=== PATIENT | male | born 1970 | race Caucasian/White ===

== ENCOUNTER 2017-07-02 14:24 | Inpatient (IN) | payer OTHER ==
[2017-07-02] MEDS ORDERED: SODIUM CHLORIDE 0.9% 1000 ML INFUS.BAG IV ONE (14:47)
--- NOTE | 2017-07-02 14:54 | PDOC ---
History of Present Illness - General Stated Complaint: OVERDOSE Time Seen by Provider: 07/02/17 14:43 - History of Present Illness Initial Comments: 07/02/17 14:48 47M with pmh of PTSD, depression and substance abuse brought to the ED by EMS from [facility] [place] where he was dropped by a friend. EMS found the patient unconscious and unarousable, gave him Narcan and check his FS: 122. Patient now conscious in the ED, admits to alcohol consumption and heroin. Obeys command. Claims he wants to , tried to kill himself. Pupils dilated but responsive. No sign of trauma. 07/02/17 16:54 07/02/17 16:55 Past History - Past Medical History Allergies/Adverse Reactions: Allergies Allergy/AdvReac Type Severity Reaction Status Date / Time No Known Allergies Allergy Verified 08/09/15 13:27 Home Medications: Ambulatory Orders Hydroxyzine Pamoate [Vistaril -] 25 mg PO TID 08/09/15 Trazodone HCl [Desyrel -] 100 mg PO HS 08/09/15 Bupropion HCl [Wellbutrin Xl -] 150 mg PO DAILY #30 tab.sr.24h 08/12/15 Asthma: No Cancer: No Cardiac Disorders: No CVA: No COPD: No CHF: No Dementia: No Diabetes: No GI Disorders: No Disorders: No HTN: No Hypercholesterolemia: No Kidney Stones: No Liver Disease: No Suicide Attempt (Hx): No Seizures: No Thyroid Disease: No - Surgical History Abdominal Surgery: No Appendectomy: No Cardiac Surgery: No Cholecystectomy: No Lung Surgery: No Neurologic Surgery: No Orthopedic Surgery: Yes (left foot surgery 1981) - Reproductive History Testicular Surgery: No - Psycho/Social/Smoking Cessation Hx Anxiety: Yes Suicidal Ideation: No Smoking History: Current some day smoker Have you smoked in the past 12 months: Yes Number of Cigarettes Smoked Daily: 2 Hx Alcohol Use: Yes Drug/Substance Use Hx: No Substance Use Type: Alcohol Hx Substance Use Treatment: Yes (detox, rehab) ED Treatment Course - LABORATORY CBC & Chemistry Diagram: 07/02/17 15:00 07/02/17 15:00 Medical Decision Making - Medical Decision Making 07/02/17 16:55 47M with pmh of PTSD, depression and substance abuse brought to the ED by EMS EtOH: 485 08/19/17 16:59 *DC/Admit/Observation/Transfer Diagnosis at time of Disposition: Alcoholic intoxication - Discharge Dispostion Admit: Yes - Referrals Referrals: Jaiden Gordon MD [Primary Care Provider] -
[2017-07-02 15:17] LABS: BASOPHIL 2.3 % (0-2.0); EOSINOPHIL 0.7 % (0-4.5); MCH 33.1 pg (25.7-33.7); MEAN CELL VOLUME 97.1 fl (80-96); MEAN PLT VOLUME 8.1 fl (7.5-11.1); NEUTROPHILS 44.6 % (42.8-82.8); PLATELET COUNT 256 K/MM3 (134-434); RDW 17.1 % (11.9-15.9); WHITE BLOOD COUNT 4.2 K/mm3 (4.0-10.0)
[2017-07-02 15:33] VITALS: BMI 22.5
[2017-07-02 15:41] LABS: ALBUMIN 3.9 g/dl (3.4-5.0); ALK PHOS 114 U/L (45-117); ANION GAP 12 (8-16); BILIRUBIN,TOTAL 0.3 mg/dL (0.2-1.0); CALCIUM 8.3 mg/dL (8.5-10.1); CO2 27 mmol/L (21-32); CREATININE 0.9 mg/dL (0.7-1.3); GLUCOSE,RANDOM 107 mg/dL (74-106); SGOT/AST 71 U/L (15-37); SGPT/ALT 48 U/L (12-78); TOT PROT 7.2 g/dl (6.4-8.2)
--- NOTE | 2017-07-02 15:41 | PDOC ---
Attending Attestation - Resident Resident Name: GurjitAl - ED Attending Attestation I have performed the following: I have examined & evaluated the patient, The case was reviewed & discussed with the resident, I agree w/resident's findings & plan, Exceptions are as noted - HPI HPI: 07/02/17 15:34 47 yo M h/o MDD, ptsd, substance and etoh abuse ( heroin) here from [facility]. pt was dropped off by brother or friend, for detox. on arrival to [facility]. pt was found to be stuporous, drowsy, and minimally responsive. called EMS on EMS arrival. pt was given narcan, responded. no n/v no other complaints. pt reports etoh use ( vodka) heroin and also states yes to benzo's use. states he is feeling suicidal and is tearful at times during history. denies trauma or other coningestant. - Physicial Exam PE: 07/02/17 15:36 drowsy but awake, eyes open, lungs clear heart RRR no mrg. abd soft NT ND. ext wwp skin warm and dry. psych tearful, pos SI, . hematoma, right calf. - Medical Decision Making 07/02/17 15:41 plan pt with psychiatric history, overdose. questionable intentional vs. accidental. plan cbc lytes tox scrren. r/o coingestant. monitoring. when clinically sober will require psychiatric evaluation for suicidality. due to mulitple ingestants, and concern for intentional overdose will require admission for observation., placed on 1: 1. belongings secured. Heart Score/ECG Review #1 General ECG Interpretation: Sinus Rhythm, Normal Rate (78), Normal Intervals, No acute ischemic changes
[2017-07-02 15:51] LABS: SALICYLATE < 4.0 mg/dl (0.0-30.0)
[2017-07-02 16:07] LABS: URINE APPEARANCE CLEAR; URINE BILIRUBIN NEGATIVE (NEGATIVE); URINE BLOOD NEGATIVE (NEGATIVE); URINE COLOR LTYELLOW; URINE GLUCOSE (UA) NEGATIVE (NEGATIVE); URINE KETONE NEGATIVE (NEGATIVE); URINE LEUK ESTERASE NEGATIVE (NEGATIVE); URINE NITRITE NEGATIVE (NEGATIVE); URINE PROTEIN NEGATIVE (NEGATIVE); URINE UROBILINOGEN NEGATIVE mg/dL (0.2-1.0)
[2017-07-02 16:35] LABS: URINE MARIJUANA THC NEGATIVE ng/ml (CUTOFF=50)
--- NOTE | 2017-07-02 17:24 | PN ---
Teaching Attending Note Name of Resident: Lise Danielson ATTENDING PHYSICIAN STATEMENT I saw and evaluated the patient. I reviewed the resident's note and discussed the case with the resident. I agree with the resident's findings and plan as documented. SUBJECTIVE: He is asleep but arouses to verbal and physical stimuli OBJECTIVE: Vitals noted He is protecting his airway Sitter reports that he stood up and urinated several minutes ago ASSESSMENT AND PLAN: Acute, severe alcohol intoxication Toxic metabolic encephalopathy Suicidal ideation and reported attempt Admit to telemetry 1:1 sitter Psych consult Will calculate osmolar gap to screen for toxic alcohol ingestion Will repeat EtOH level now to ensure that it is declining, given the extreme height and the danger of airway compromise should it increase IVF resuscitation followed by banana bag Thiamine, Folate, MVI daily I suspect heavy use given his level of arousal with such a high alcohol level Will follow closely for alcohol withdrawal given
--- NOTE | 2017-07-02 17:42 | HP ---
CHIEF COMPLAINT: intoxication PCP: none HISTORY OF PRESENT ILLNESS: 47 yr old man with current and hx of ETOH abuse bibems from [facility] due to severe intoxication. He started drinking daily since last Tuesday (1 liter of vodka, Jimenez goose mixed with vitamin water) when his left him to live in [place]. He says he spent the days watching TV and drinking without food intake. He says that wants to hurt himself with alcohol, began crying and went back to sleep. Patient is arousable to verbal and tactile stimuli but does not maintain alertness. ER course was notable for: (1)ETOH level 485 (2) urine tox negative (3) chest xray - negative for acute lung pathology Recent Travel: denies CHART REVIEWED FOR FURTHER INFORMATION PAST MEDICAL HISTORY: ETOH abuse PAST SURGICAL HISTORY: "left foot surgery 1981" Social History: Smoking: current everyday smoker Alcohol: current everyday drinker Drugs: as per ED note: pt said he took heroin but urine tox is negative Family History: "Diabetes: Mother (depression), CA: Father (throat cancer, alcohol), Other: Mother, Brother (mental illness)" Allergies No Known Allergies Allergy (Verified 08/09/15 13:27) HOME MEDICATIONS: Home Medications - [facility] DOES NOT HAVE A FILE FOR THIS PATIENT, UNABLE TO VERIFY HOME MEDS Medication Instructions Recorded Hydroxyzine Pamoate [Vistaril -] 25 mg PO TID 08/09/15 Trazodone HCl [Desyrel -] 100 mg PO HS 08/09/15 Bupropion HCl [Wellbutrin Xl -] 150 mg PO DAILY #30 tab.sr.24h 08/12/15 REVIEW OF SYSTEMS CONSTITUTIONAL: Present: loss of appetite Absent: fever, chills, diaphoresis, generalized weakness, malaise, loss of appetite CARDIOVASCULAR: Absent: chest pain RESPIRATORY: Absent: cough, shortness of breath GASTROINTESTINAL: Absent: abdominal pain, abdominal distension, nausea, vomiting, diarrhea GENITOURINARY: Absent: dysuria, hematuria PSYCHIATRIC: Present: suicidal ideation, depressed Absent: homicidal ideation PHYSICAL EXAMINATION Vital Signs - 24 hr 07/02/17 07/02/17 14:25 17:21 Temperature 98.2 F Pulse Rate 76 Pulse Rate [ 86 Apical] Respiratory 16 21 Rate Blood Pressure 119/90 Blood Pressure 110/74 [Right Arm] O2 Sat by Pulse 99 96 Oximetry (%) GENERAL: lethargic, arousable but does not maintain alertness, oriented to person, in no acute distress. HEAD: Normal with no signs of trauma. EYES: Pupils dilated, minimally reactive to light, extraocular movements intact , sclera anicteric, conjunctiva clear. EARS, NOSE, THROAT: Tympanic membranes normal, nares patent, oropharynx clear without exudates/erythema. Moist mucous membranes. NECK: Normal range of motion, supple without lymphadenopathy, JVD, or masses. LUNGS: Breath sounds equal, clear to auscultation bilaterally. No wheezes, and no crackles. No accessory muscle use. HEART: Regular rate and rhythm, normal S1 and S2 without murmur, rub or gallop. ABDOMEN: Soft, nontender, not distended, normoactive bowel sounds, no guarding, no rebound, no masses. No hepatomegaly or splenomegaly. MUSCULOSKELETAL: Normal range of motion at all joints. No bony deformities or tenderness. No CVA tenderness. UPPER EXTREMITIES: 2+ radial pulses, warm, well-perfused. No cyanosis. No clubbing. No peripheral edema. LOWER EXTREMITIES: 2+ dp pulses, warm, well-perfused. No calf tenderness. No peripheral edema. right medial lower leg with 2x2cm bruise NEUROLOGICAL: Normal speech. follows commands, lethargic. PSYCHIATRIC: Cooperative. [facility] Laboratory Results - last 24 hr 07/02/17 07/02/17 07/02/17 15:00 15:00 15:00 WBC 4.2 RBC 3.96 L Hgb 13.1 Hct 38.4 MCV 97.1 H MCH 33.1 MCHC 34.0 RDW 17.1 H D Plt Count 256 D MPV 8.1 Neutrophils % 44.6 D Lymphocytes % 44.6 H D Monocytes % 7.8 Eosinophils % 0.7 Basophils % 2.3 H Sodium 145 Potassium 3.8 Chloride 106 Carbon Dioxide 27 Anion Gap 12 BUN 14 D Creatinine 0.9 Creat Clearance w eGFR > 60 Random Glucose 107 H Calcium 8.3 L Total Bilirubin 0.3 D AST 71 H D ALT 48 D Alkaline Phosphatase 114 Total Protein 7.2 Albumin 3.9 D Urine Color Urine Appearance Urine pH Urine Protein Urine Glucose (UA) Urine Ketones Urine Blood Urine Nitrite Urine Bilirubin Urine Urobilinogen Ur Leukocyte Esterase Salicylates < 4.0 Opiates Screen Methadone Screen Acetaminophen < 2.000 L Barbiturate Screen Phencyclidine Screen Ur Amphetamines Screen MDMA (Ecstasy) Screen Benzodiazepines Screen Cocaine Screen U Marijuana (THC) Screen Alcohol, Quantitative 07/02/17 07/02/17 07/02/17 15:00 15:41 15:41 WBC RBC Hgb Hct MCV MCH MCHC RDW Plt Count MPV Neutrophils % Lymphocytes % Monocytes % Eosinophils % Basophils % Sodium Potassium Chloride Carbon Dioxide Anion Gap BUN Creatinine Creat Clearance w eGFR Random Glucose Calcium Total Bilirubin AST ALT Alkaline Phosphatase Total Protein Albumin Urine Color Ltyellow Urine Appearance Clear Urine pH 5.0 Urine Protein Negative Urine Glucose (UA) Negative Urine Ketones Negative Urine Blood Negative Urine Nitrite Negative Urine Bilirubin Negative Urine Urobilinogen Negative Ur Leukocyte Esterase Negative Salicylates Opiates Screen Negative Methadone Screen Negative Acetaminophen Barbiturate Screen Negative Phencyclidine Screen Negative Ur Amphetamines Screen Negative MDMA (Ecstasy) Screen Negative Benzodiazepines Screen Negative Cocaine Screen Negative U Marijuana (THC) Screen Negative Alcohol, Quantitative 485.4 H* ASSESSMENT/PLAN: 47 yr old man with ETOH abuse BIBEMS from [facility] due to toxic metabolic encephalopathy secondary to severe alcohol intoxication. #Toxic metabolic encephalopathy secondary to severe ETOH intoxication - repeat serum alcohol level to ensure decline - serum osm gap of 25, pt denies taking any other agents with the vodka, U/A without ketonos or microscopy to indicate other types of alcohol - place in telemetry for continous cardiac monitoring, pt will require detox with librium #Severe ETOH intoxication - pt will require detox, Dr. Gordon consulted for possible detox transfer once pt medically stable - thiamine, folate, multivitamin po daily - banana bag now, IVF #Suicidal ideation - Dr. Cabrera(Psych consult) - 1:1 sitter - continous monitoring - pt said he is taking risperdal, unable to verify, he cannot name a physician or pharmacy. will defer psych medications at this time, QTc currently wnl. #DVT: Heparin 5000unit BID #GI: not currently indicated #Activity: as tolerated once detox'd F/E/N - NS @100cc/hr - wnl - regular diet Visit type - Emergency Visit Emergency Visit: Yes ED Registration Date: 07/02/17 Care time: The patient presented to the Emergency Department on the above date and was hospitalized for further evaluation of their emergent condition. - New Patient This patient is new to me today: Yes Date on this admission: 07/02/17 - Critical Care Critical Care patient: No
[2017-07-02] MEDS ORDERED: FOLIC ACID INJECTION - 1 MG, THIAMINE HCL 100 MG, MULTIVIT INJECTION ADULT 10 ML in SOD... IVPB ONE (18:57)
[2017-07-03] MEDS ORDERED: SODIUM CHLORIDE 1,000 ML IV SCH (08:15)
[2017-07-03] MEDS: chlordiazePOXIDE HCL 25 MG CAPSULE PO SCH ×4 (08:25→22:56)
[2017-07-03] MEDS ORDERED: LORazepam 2 MG/ML SDV VIAL ONE ×2 (08:50→14:50)
[2017-07-03] MEDS: THIAMINE HCL 100 MG TABLET (FP) PO SCH (09:24)
[2017-07-03] MEDS: FOLIC ACID 1 MG TABLET (FP) PO SCH (09:24)
--- NOTE | 2017-07-03 09:47 | PN ---
Physical Exam: SUBJECTIVE: Patient seen and examined. He reports drinking 3 pints of Vodka per day. He has been admitted for alcohol withdrawal but denies any ICU admissions or seizures. His last drink was shortly before he presented to the ED yesterday. He uses recreational crack occasionally (inhaled) and used recreational heroin ( intranasal) for the first time Tuesday. He adamantly denies any suicidal ideation or attempt and does not recall communicating that to the ED. He states that he drank 5 pintos of Vodka the day of his presentation to the ED. He denies all other ingestions. He reports feeling some restlessness and tremor now. OBJECTIVE: Vital Signs Period Temp Pulse Resp BP Sys/Lorenzo Pulse Ox Last 24 Hr 97.2 F-98.5 F 64-95 18-18 110-113/60-81 96-99 GEN: Awake, alert CVS: RRR PULM: CTAB ABD: soft, NT/ND, NABS EXTREM: warm ,well perfused NEURO: tremulous Laboratory Results - last 24 hr 07/02/17 07/02/17 17:50 21:00 Serum Osmolality Cancelled Alcohol, Quantitative 371.5 H* Active Medications Generic Name Dose Route Start Last Admin Trade Name Freq PRN Reason Stop Dose Admin Chlordiazepoxide HCl 50 mg 07/03/17 11:00 07/03/17 08:25 Librium - PO 50 mg [id number] ISH Administration Folic Acid 1 mg 07/03/17 10:00 07/03/17 09:24 Folic Acid - PO 1 mg DAILY ISH Administration Heparin Sodium (Porcine) 5,000 unit 07/03/17 10:00 Heparin - SQ BID ISH Sodium Chloride 1,000 mls @ 100 mls/hr 07/03/17 08:15 07/03/17 09:29 Normal Saline - IV 100 mls/hr ASDIR ISH Administration Lorazepam 2 mg 07/03/17 08:47 07/03/17 08:26 Ativan Injection - IVPUSH 07/03/17 08:48 2 mg ONCE ONE Administration Multivitamins/Minerals 1 each 07/03/17 10:00 Theragran-M PO DAILY ISH Thiamine HCl 100 mg 07/03/17 10:00 07/03/17 09:24 Vitamin B1 - PO 100 mg DAILY ISH Administration ASSESSMENT/PLAN: The patient is a 47 year old male with a significant past medical history of alcohol abuse who is now hospital day #1 with acute, severe alcohol intoxication and reported suicidal ideation and attempt. He is now in alcohol withdrawal. #POLYSUBSTANCE ABUSE Acute, severe alcohol intoxication Alcohol withdrawal Toxic metabolic encephalopathy Suicidal ideation and reported attempt which he now denies Continue telemetry monitoring given alcohol withdrawal Librium 50mg Q6H Ativan 2mg IV Q2hrs prn agitation Detox consult Continue 1:1 sitter Psych consult pending Continue Thiamine, Folate, MVI daily #FEN He is now euvolemic Change IVF to D51/2NS at 125ml/hr Todays labs pending Of note, he had a small osmolar gap yesterday, but no anion gap I felt that a toxic alcohol ingestion was unlikely With the height of his alcohol intoxication, he was also protected from their toxic metabolities and so we elected not to give Fomepizole Will look at todays labs including anion gap and osmolar gap and reassess But he does deny any ingestions other than store bought vodka #PROPHYLAXIS Lovenox Eating He may need GI prophylaxis if his alcohol withdrawal worsens Visit type - Emergency Visit Emergency Visit: Yes ED Registration Date: 07/02/17 Care time: The patient presented to the Emergency Department on the above date and was hospitalized for further evaluation of their emergent condition. - New Patient This patient is new to me today: No - Critical Care Critical Care patient: No
[2017-07-03] MEDS ORDERED: DEXTROSE 5%-0.45% SALINE 1,000 ML IV SCH (10:00)
[2017-07-03] MEDS ORDERED: HEPARIN NA (PORCINE) 5,000 UNITS/ML 1ML VIAL SQ SCH (10:00)
[2017-07-03] MEDS: MULTIVITAMINS THER W-MINERALS COMBO TABLET (FP) PO SCH (11:25)
[2017-07-03] MEDS: ENOXAPARIN NA (PORCINE) 40 MG/0.4 ML DISP.SYRIN SQ SCH (11:29)
[2017-07-03 11:50] LABS: ALBUMIN 3.4 g/dl (3.4-5.0); ANION GAP 9 (8-16); CALCIUM 8.1 mg/dL (8.5-10.1); CO2 27 mmol/L (21-32); CREATININE 0.8 mg/dL (0.7-1.3); GLUCOSE,RANDOM 150 mg/dL (74-106); MAGNESIUM 1.5 mg/dL (1.8-2.4); PHOSPHOROUS 1.8 mg/dL (2.5-4.9); SGOT/AST 53 U/L (15-37); SGPT/ALT 41 U/L (12-78)
[2017-07-03 11:52] LABS: ALK PHOS 90 U/L (45-117); BILIRUBIN,TOTAL 0.5 mg/dL (0.2-1.0); TOT PROT 6.4 g/dl (6.4-8.2)
--- NOTE | 2017-07-03 12:53 | EKG ---
Test Reason : Blood Pressure : / mmHG Vent. Rate : 078 BPM Atrial Rate : 078 BPM P-R Int : 166 ms QRS Dur : 104 ms QT Int : 410 ms P-R-T Axes : 064 -30 -06 degrees QTc Int : 467 ms NORMAL SINUS RHYTHM LEFT AXIS DEVIATION ABNORMAL ECG NO PREVIOUS ECGS AVAILABLE Confirmed by MARTY KEANE MD ([id number]) on 07/03/2017 12:52:31 PM Referred By: Confirmed By:MARTY KEANE MD
[2017-07-03] MEDS ORDERED: MAGNESIUM SULF 50% (8.12 MEQ/2 ML-1 GM VIAL) IVPB ONE (14:15)
[2017-07-03] MEDS: MAGNESIUM OXIDE 400 MG TABLET (FP) PO SCH (22:56)
[2017-07-04 06:37] VITALS: TEMP 98
[2017-07-04] MEDS: chlordiazePOXIDE HCL 25 MG CAPSULE PO SCH ×2 (06:37→10:53)
[2017-07-04 07:57] LABS: BASOPHIL 0.9 % (0-2.0); EOSINOPHIL 1.3 % (0-4.5); MCH 33.4 pg (25.7-33.7); MCHC 34.2 g/dl (32.0-35.9); MEAN CELL VOLUME 97.4 fl (80-96); MEAN PLT VOLUME 8.6 fl (7.5-11.1); PLATELET COUNT 237 K/MM3 (134-434); RDW 16.3 % (11.9-15.9); WHITE BLOOD COUNT 5.9 K/mm3 (4.0-10.0)
[2017-07-04 08:56] LABS: ALBUMIN 3.4 g/dl (3.4-5.0); ALK PHOS 98 U/L (45-117); ANION GAP 8 (8-16); BILIRUBIN,TOTAL 0.9 mg/dL (0.2-1.0); CALCIUM 8.8 mg/dL (8.5-10.1); CO2 29 mmol/L (21-32); CREATININE 0.8 mg/dL (0.7-1.3); GLUCOSE,RANDOM 82 mg/dL (74-106); PHOSPHOROUS 2.6 mg/dL (2.5-4.9); SGOT/AST 48 U/L (15-37); SGPT/ALT 41 U/L (12-78); TOT PROT 6.7 g/dl (6.4-8.2)
[2017-07-04] MEDS: THIAMINE HCL 100 MG TABLET (FP) PO SCH (10:52)
[2017-07-04] MEDS: FOLIC ACID 1 MG TABLET (FP) PO SCH (10:52)
[2017-07-04] MEDS: MULTIVITAMINS THER W-MINERALS COMBO TABLET (FP) PO SCH (10:52)
[2017-07-04] MEDS: MAGNESIUM OXIDE 400 MG TABLET (FP) PO SCH (10:52)
[2017-07-04] MEDS: ENOXAPARIN NA (PORCINE) 40 MG/0.4 ML DISP.SYRIN SQ SCH (10:53)
[2017-07-04 11:08] VITALS: BP 130/82; PULSE 72
--- NOTE | 2017-07-04 12:52 | PN ---
Teaching Attending Note Name of Resident: Lise Danielson ATTENDING PHYSICIAN STATEMENT I saw and evaluated the patient. I reviewed the resident's note and discussed the case with the resident. I agree with the resident's findings and plan as documented. SUBJECTIVE: Patient has no complaints. He is concerned about missing luggage. OBJECTIVE: Vital Signs Period Temp Pulse Resp BP Sys/Lorenzo Pulse Ox Last 24 Hr 98 F-98.7 F 59-78 18-20 124-139/69-84 96-98 HEART: S1S, RRR LUNGS: Clear ABDOMEN: Soft, non-tender, non-distended, normal BS EXTREMITIES: No edema ASSESSMENT AND PLAN: This is a 47 year old man with a history of alcohol abuse who was sent to the ER from [facility] for severe alcohol intoxication. 1. Alcohol withdrawal, uncomplicated - Continue Librium detox - Awaiting detox consult 2. Continuous alcohol dependence - Continue folic acid, thiamine, multivitamin 3. s/p severe alcohol intoxication
--- NOTE | 2017-07-04 16:00 | DS ---
Physical Exam: SUBJECTIVE: Patient seen and examined at bedside today. Pt stated that he no longer wanted to be in the hospital because he was missing his luggage that had valuable items in it. He stated that he did not want to continue his treatment and find his luggage. Pt was told about the risks of leaving, such as relapsing and self-harm. However, he left AMA. OBJECTIVE: Vital Signs Period Temp Pulse Resp BP Sys/Lorenzo Pulse Ox Last 24 Hr 98 F-98.7 F 59-78 18-20 124-139/69-84 96-98 PHYSICAL EXAM GENERAL: The patient is awake, guarded, in no acute distress. HEAD: Normal with no signs of trauma. EYES: PERRL, extraocular movements intact, sclera anicteric, conjunctiva clear. NECK: Trachea midline, full range of motion, supple. LUNGS: Breath sounds equal, clear to auscultation bilaterally, no wheezes, no crackles, no accessory muscle use. HEART: Regular rate and rhythm, S1, S2 without murmur, rub or gallop. ABDOMEN: Soft, nontender, nondistended, normoactive bowel sounds, no guarding, no rebound, no hepatosplenomegaly, no masses. EXTREMITIES: 2+ posterior tibial pulses, warm, well-perfused, no edema. NEUROLOGICAL: Cranial nerves II through XII grossly intact. Tremor at rest and upon movement in upper extremities. PSYCH: Depressed, guarded VITALS TREND/LABS Vitals Trend 07/02/17 07/02/17 07/02/17 14:25 17:21 18:00 Temperature 98.2 F Pulse Rate 76 Respiratory 16 21 Rate Blood Pressure 119/90 O2 Sat by Pulse 99 96 99 Oximetry (%) 07/02/17 07/02/17 07/03/17 22:00 23:18 02:00 Temperature 97.2 F L 97.2 F L 98.0 F Pulse Rate 64 64 66 Respiratory 18 18 18 Rate Blood Pressure 113/81 113/81 110/60 O2 Sat by Pulse Oximetry (%) 07/03/17 07/03/17 07/03/17 05:47 08:19 08:25 Temperature 98.5 F 98.5 F Pulse Rate 72 95 H Respiratory 18 18 18 Rate Blood Pressure 112/74 110/69 O2 Sat by Pulse 96 98 Oximetry (%) 07/03/17 07/03/17 07/03/17 15:59 17:00 21:00 Temperature 98.2 F 98.2 F Pulse Rate 78 73 Respiratory 18 20 Rate Blood Pressure 128/74 134/84 O2 Sat by Pulse 98 Oximetry (%) 07/03/17 07/03/17 07/04/17 21:42 22:00 02:00 Temperature 98 F 98.7 F Pulse Rate 70 60 70 Respiratory 20 19 Rate Blood Pressure 124/80 139/69 O2 Sat by Pulse 96 Oximetry (%) 07/04/17 07/04/17 07/04/17 06:36 09:00 10:00 Temperature 98 F 98 F Pulse Rate 59 L 72 Respiratory 20 18 Rate Blood Pressure 133/84 130/82 O2 Sat by Pulse 98 98 Oximetry (%) Laboratory Tests 07/02/17 07/02/17 07/02/17 15:00 15:00 15:00 WBC 4.2 RBC 3.96 L Hgb 13.1 Hct 38.4 MCV 97.1 H MCH 33.1 MCHC 34.0 RDW 17.1 H D Basophils % 2.3 H Sodium 145 Potassium 3.8 Carbon Dioxide 27 Anion Gap 12 BUN 14 D Creatinine 0.9 Random Glucose 107 H Serum Osmolality 432 H Calcium 8.3 L AST 71 H D ALT 48 D 07/03/17 07/03/17 07/04/17 10:40 10:40 05:48 WBC 5.9 D RBC 4.25 Hgb 14.2 Hct MCV 97.4 H MCH 33.4 MCHC 34.2 RDW 16.3 H Basophils % Sodium 140 Potassium 3.7 Carbon Dioxide 27 Anion Gap 9 BUN 11 D Creatinine 0.8 Random Glucose 150 H D Serum Osmolality 321 H D Calcium 8.1 L AST 53 H D ALT 41 07/04/17 05:48 WBC RBC Hgb Hct MCV MCH MCHC RDW Basophils % Sodium 137 Potassium 3.7 Carbon Dioxide 29 Anion Gap 8 BUN 12 Creatinine 0.8 Random Glucose 82 D Serum Osmolality Calcium 8.8 AST 48 H ALT 41 IMAGING -07/02/17 EKG: normal sinus rhythm, L axis deviation -07/02/17 CXR: since 07/2015, slightly weaker inspiration with more prominent mediastinum/heart but no sign of acute process. HOSPITAL COURSE: Date of Admission:07/02/17 Date of Discharge: 07/04/17 Admit diagnosis: alcohol intoxication Pre-admission course 47 yr old man with current and hx of ETOH abuse bibems from [facility] due to severe intoxication. He started drinking daily since last Tuesday (1 liter of vodka, Jimenez goose mixed with vitamin water) when his left him to live in [place]. He says he spent the days watching TV and drinking without food intake. He says that wants to hurt himself with alcohol, began crying and went back to sleep. Patient is arousable to verbal and tactile stimuli but does not maintain alertness. ER course was notable for: (1)ETOH level 485 (2) urine tox negative (3) chest xray - negative for acute lung pathology Hospital course Pt was managed for alcohol intoxication upon admission. He was placed on tele monitoring without any acute cardiac events, and started on Librium protocol at 50mg Q6H (received 5 doses), as well as ativan 2mg IV q2h for PRN agitation. Detox consult was also in place, and pt was on thiamine, folate, and a multivitamin daily. Psych was also consulted, however pt left AMA before these consults were completed. Pt stated that he wanted to leave the facility to retrieve a bag with valuables that he left at another site. He stated that he no longer wanted to continue his medical treatment, despite the risks that were presented to him upon leaving. Pt still was tremulous in upper extremities upon leaving. Minutes to complete discharge: 32 Discharge Summary Reason For Visit: ALCOHOL INTOXICATION Condition: Guarded - Instructions Diet, Activity, Other Instructions: You were recently in the hospital for alcohol intoxication and withdrawal. We recommend that you look into joining an AA meeting. They are a good way to find support from people with similar experiences. A delinquency prevention social worker from our facility can provide you with additional resources. You expressed interest in doing so during your hospitalization. Please follow-up with your primary care physician in a week. If you develop shortness of breath, chest pain, or any new symptoms, please go to the hospital. We hope you feel better soon. Referrals: Jaiden Gordon MD [Primary Care Provider] - Disposition: AGAINST MEDICAL ADVICE - Home Medications Comprehensive Discharge Medication List: Ambulatory Orders Hydroxyzine Pamoate [Vistaril -] 75 mg PO DAILY 08/09/15 Trazodone HCl [Desyrel -] 100 mg PO HS 08/09/15 This patient is new to me today: Yes Date on this admission: 07/04/17 Emergency Visit: No Critical Care patient: No - Discharge Referral Referred to [facility] No
== END 2017-07-04 13:18 | disposition left against medical advice (07) | DRG 770 ==
LOC: JER 14:24 → JERBED 17:31 → J4W 22:08
PROVIDERS: ADMIT Internal Medicine; ATTEND Internal Medicine
PROC: HZ2ZZZZ Detoxification Services for Substance Abuse Treatment (ICD-10-PCS; principal; 2017-07-03)
DX: F10.230 Alcohol dependence with withdrawal, uncomplicated (principal); F10.229 Alcohol dependence with intoxication, unspecified; F43.10 Post-traumatic stress disorder, unspecified; G92 Toxic encephalopathy; R45.851 Suicidal ideations; Y90.8 Blood alcohol level of 240 mg/100 ml or more; F17.210 Nicotine dependence, cigarettes, uncomplicated; F19.10 Other psychoactive substance abuse, uncomplicated
CPT/HCPCS: 36415; 71010-TC; 80053; 80307; 81003; 83735; 83930; 84100; 85025; 93005; 93010; 99285-25

== ENCOUNTER 2017-07-30 18:50 | Emergency (ER) | payer OTHER ==
[2017-07-30 19:27] VITALS: TEMP 97.8; BMI 27.3
--- NOTE | 2017-07-30 19:31 | PDOC ---
History of Present Illness - General History Source: Patient - History of Present Illness Initial Comments: 07/31/17 07:00 47-year-old male tai PRASAD. Patient is arousable and denies any headache, dizziness, lightheadedness, visual disturbance, neck pain, back pain, chest pain , shortness of breath, flank pains, abdominal discomfort, urinary symptoms, Tha numbness or tingling sensation. Patient states he had a pint of vodka earlier today and smoked some crack last evening. Patient reports a parked care for alcohol detoxification and was sent to the emergency department. Patient has no complaints. Timing/Duration: 4-6 hours <Ab Huynh - Last Filed: 07/31/17 04:08> - History of Present Illness Initial Comments: 07/31/17 05:50 Pt seen by Midlevel Provider under my direct supervision. Documentation has been prepared under my direction and personally reviewed by me in its entirety. I attest that this document accurately reflects all work, treatment, procedures and medical decision-making performed. I agree with plan as outlined by Midlevel Provider. (Alejandro Wei I) <Alejandro Wei I - Last Filed: 07/31/17 05:55> - General Chief Complaint: Substance Abuse Stated Complaint: SUBSTANCE ABUSE Time Seen by Provider: 07/30/17 18:55 Past History - Past Medical History Asthma: No Cancer: No Cardiac Disorders: No CVA: No COPD: No CHF: No Dementia: No Diabetes: No GI Disorders: No Disorders: No HTN: No Hypercholesterolemia: No Kidney Stones: No Liver Disease: No Psychiatric Problems: Yes Suicide Attempt (Hx): No Seizures: No Thyroid Disease: No - Surgical History Abdominal Surgery: No Appendectomy: No Cardiac Surgery: No Cholecystectomy: No Lung Surgery: No Neurologic Surgery: No Orthopedic Surgery: Yes (left foot surgery 1981) - Reproductive History Testicular Surgery: No - Psycho/Social/Smoking Cessation Hx Anxiety: Yes Suicidal Ideation: No Smoking History: Unknown if ever smoked Have you smoked in the past 12 months: Yes Number of Cigarettes Smoked Daily: 2 Information on smoking cessation initiated: No Hx Alcohol Use: Yes Drug/Substance Use Hx: Yes (XANAX PER [employer]) Substance Use Type: Alcohol, Heroin Hx Substance Use Treatment: Yes (detox, rehab) <Ab Huynh - Last Filed: 07/31/17 04:08> <JaydenlucienLalucien Adams - Last Filed: 07/31/17 05:55> - Past Medical History Allergies/Adverse Reactions: Allergies Allergy/AdvReac Type Severity Reaction Status Date / Time No Known Allergies Allergy Verified 08/09/15 13:27 Home Medications: Ambulatory Orders Hydroxyzine Pamoate [Vistaril -] 75 mg PO DAILY 08/09/15 Trazodone HCl [Desyrel -] 100 mg PO HS 08/09/15 Unobtainable 07/30/17 Review of Systems - Review of Systems Able to Perform ROS?: Yes Comments:: 07/31/17 04:06 CONSTITUTIONAL: Absent: fever, chills, diaphoresis, generalized weakness, malaise, loss of appetite HEENT: Absent: rhinorrhea, nasal congestion, throat pain, throat swelling, difficulty swallowing, mouth swelling, ear pain, eye pain, visual Changes CARDIOVASCULAR: Absent: chest pain, loss of consciousness, palpitations, irregular heart rate, peripheral edema RESPIRATORY: Absent: cough, shortness of breath, dyspnea with exertion, orthopnea, wheezing, stridor, hemoptysis GASTROINTESTINAL: Absent: abdominal pain, abdominal distension, nausea, vomiting, diarrhea, constipation, melena, hematochezia GENITOURINARY: Absent: dysuria, frequency, urgency, hesitancy, hematuria, flank pain, genital pain MUSCULOSKELETAL: Absent: myalgia, arthralgia, joint swelling SKIN: Absent: rash, itching, pallor HEMATOLOGIC/IMMUNOLOGIC: Absent: easy bleeding, easy bruising, lymphadenopathy, frequent infections ENDOCRINE: Absent: unexplained weight gain, unexplained weight loss, heat intolerance, cold intolerance NEUROLOGIC: Absent: headache, focal weakness or paresthesias, dizziness, unsteady gait, seizure, mental status changes, bladder or bowel incontinence PSYCHIATRIC: Absent: anxiety, depression, suicidal or homicidal ideation, hallucinations. Is the patient limited Hungarian proficient: No <AminaAb - Last Filed: 07/31/17 04:08> *Physical Exam - Vital Signs Last Vital Signs Temp Pulse Resp BP Pulse Ox 97.8 F 71 20 120/78 94 L 07/30/17 19:14 07/30/17 19:14 07/30/17 19:14 07/30/17 19:14 07/30/17 19:14 - Physical Exam Comments: 07/31/17 04:06 GENERAL: Well developed, well nourished. Awake and alert. No acute distress. HEENT: Normocephalic, atraumatic. PERRLA, EOMI. No conjunctival pallor. Sclera are non- icteric. Moist mucous membranes. Oropharynx is clear. NECK: Supple. Full ROM. No JVD. Carotid pulses 2+ and symmetric, without bruits. No thyromegaly. No lymphadenopathy. CARDIOVASCULAR: Regular rate and rhythm. No murmurs, rubs, or gallops. Distal pulses are 2+ and symmetric. PULMONARY: No evidence of respiratory distress. Lungs clear to auscultation bilaterally. No wheezing, rales or rhonchi. ABDOMINAL: Soft. Non-tender. Non-distended. No rebound or guarding. No organomegaly. Normoactive bowel sounds. MUSCULOSKELETAL Normal range of motion at all joints. No bony deformities or tenderness. No CVA tenderness. EXTREMITIES: No cyanosis. No clubbing. No edema. No calf tenderness. SKIN: Warm and dry. Normal capillary refill. No rashes. No jaundice. NEUROLOGICAL: Alert, awake, appropriate. Cranial nerves 2-12 intact. No deficits to light touch and temperature in face, upper extremities and lower extremities. No motor deficits in the in face, upper extremities and lower extremities. Normoreflexic in the upper and lower extremities. Normal speech. Toes are down- going bilaterally. Gait is normal without ataxia. PSYCHIATRIC: Cooperative. Good eye contact. Appropriate mood and affect. <Ab Huynh - Last Filed: 07/31/17 04:08> - Vital Signs Last Vital Signs Temp Pulse Resp BP Pulse Ox 97.8 F 71 20 120/78 94 L 07/30/17 19:14 07/30/17 19:14 07/30/17 19:14 07/30/17 19:14 07/30/17 19:14 <Alejandro Wei I - Last Filed: 07/31/17 05:55> ED Treatment Course - LABORATORY CBC & Chemistry Diagram: 07/30/17 19:40 07/30/17 19:40 - RADIOLOGY Radiograph Interpretation: 07/31/17 00:29 CT head w/o contrast; WNL <Ab Huynh - Last Filed: 07/31/17 04:08> - LABORATORY CBC & Chemistry Diagram: 07/30/17 19:40 07/30/17 19:40 - ADDITIONAL ORDERS Additional order review: Laboratory Results 07/30/17 07/30/17 07/30/17 19:45 19:40 19:40 Sodium Potassium Chloride Carbon Dioxide Anion Gap BUN Creatinine Creat Clearance w eGFR Random Glucose Calcium Total Bilirubin AST ALT Alkaline Phosphatase Total Protein Albumin Salicylates < 4.0 Opiates Screen Negative Methadone Screen Negative Acetaminophen < 2.000 L Barbiturate Screen Negative Phencyclidine Screen Negative Ur Amphetamines Screen Negative MDMA (Ecstasy) Screen Negative Benzodiazepines Screen Negative Cocaine Screen Positive U Marijuana (THC) Screen Negative Alcohol, Quantitative 512.3 H* 07/30/17 19:40 Sodium 142 Potassium 3.6 Chloride 105 Carbon Dioxide 26 Anion Gap 11 BUN 12 Creatinine 0.9 Creat Clearance w eGFR > 60 Random Glucose 125 H D Calcium 8.6 Total Bilirubin 0.3 D AST 75 H D ALT 45 Alkaline Phosphatase 90 Total Protein 7.2 Albumin 3.7 Salicylates Opiates Screen Methadone Screen Acetaminophen Barbiturate Screen Phencyclidine Screen Ur Amphetamines Screen MDMA (Ecstasy) Screen Benzodiazepines Screen Cocaine Screen U Marijuana (THC) Screen Alcohol, Quantitative 07/30/17 19:40 RBC 4.28 MCV 97.2 H MCHC 34.4 RDW 15.5 MPV 7.9 Neutrophils % No Result Required. Lymphocytes % No Result Required. - Medications Given in the ED: ED Medications Discontinued Medications Generic Name Dose Route Start Last Admin Trade Name Alfredoq PRN Reason Stop Dose Admin Folic Acid 1 mg/ Thiamine HCl 1,000 mls @ 125 mls/hr 07/30/17 21:26 07/30/17 23 :02 100 mg/ Multivitamins/Minerals IVPB 07/31/17 05:25 125 mls/hr 10 ml/ Sodium Chloride ONCE ONE Administration <Alejandro Wei I - Last Filed: 07/31/17 05:55> *DC/Admit/Observation/Transfer - Discharge Dispostion Admit: No <Ab Huynh - Last Filed: 07/31/17 04:08> <Alejandro Wei I - Last Filed: 07/31/17 05:55> Diagnosis at time of Disposition: Alcohol intoxication Qualifiers: Complication of substance-induced condition: uncomplicated Qualified Code(s): F10.920 - Alcohol use, unspecified with intoxication, uncomplicated - Discharge Dispostion Disposition: HOME Condition at time of disposition: Stable - Referrals Referrals: Radha Tadeo [Primary Care Provider] - - Patient Instructions Printed Discharge Instructions: DI for Alcohol Abuse Additional Instructions: You are being sent to [facility] for Alcohol Detoxification Return to the ER for any concerns Progress Note - Progress Note Progress Note: 0405hrs: Spoke to Dr. Jordan from [facility] <Ab Huynh - Last Filed: 07/31/17 04:08>
[2017-07-30 20:01] LABS: MCH 33.5 pg (25.7-33.7); MCHC 34.4 g/dl (32.0-35.9); MEAN CELL VOLUME 97.2 fl (80-96); MEAN PLT VOLUME 7.9 fl (7.5-11.1); PLATELET COUNT 242 K/MM3 (134-434); RDW 15.5 % (11.9-15.9); WHITE BLOOD COUNT 4.9 K/mm3 (4.0-10.0)
[2017-07-30 20:02] LABS: URINE MARIJUANA THC NEGATIVE ng/ml (CUTOFF=50)
[2017-07-30 20:36] LABS: ALBUMIN 3.7 g/dl (3.4-5.0); ANION GAP 11 (8-16); CALCIUM 8.6 mg/dL (8.5-10.1); CO2 26 mmol/L (21-32); CREATININE 0.9 mg/dL (0.7-1.3); GLUCOSE,RANDOM 125 mg/dL (74-106); SGOT/AST 75 U/L (15-37); SGPT/ALT 45 U/L (12-78)
[2017-07-30 20:37] LABS: PLATELET ESTIMATE ADEQUATE (NORMAL); TOTAL CELLS COUNTED 100
[2017-07-30 20:38] LABS: ALK PHOS 90 U/L (45-117); BASOPHIL (MANUAL) 3 % (0-2.0); BILIRUBIN,TOTAL 0.3 mg/dL (0.2-1.0); REACTIVE LYMPHOCYTES 1 % (0-80); TOT PROT 7.2 g/dl (6.4-8.2)
[2017-07-30 20:46] LABS: SALICYLATE < 4.0 mg/dl (0.0-30.0)
[2017-07-30] MEDS ORDERED: FOLIC ACID INJECTION - 1 MG, THIAMINE HCL 100 MG, MULTIVIT INJECTION ADULT 10 ML in SOD... IVPB ONE (21:26)
[2017-07-31 07:19] VITALS: BP 116/85; PULSE 77
--- NOTE | 2017-08-01 16:36 | EKG ---
Test Reason : Blood Pressure : / mmHG Vent. Rate : 073 BPM Atrial Rate : 073 BPM P-R Int : 178 ms QRS Dur : 108 ms QT Int : 394 ms P-R-T Axes : 081 -26 008 degrees QTc Int : 434 ms NORMAL SINUS RHYTHM NORMAL ECG WHEN COMPARED WITH ECG OF 02-JUL-2017 15:02, NO SIGNIFICANT CHANGE WAS FOUND Confirmed by JUDY RAPHAEL MD ([id number]) on 08/01/2017 4:36:15 PM Referred By: Confirmed By:JUDY RAPHAEL MD
== END 2017-07-31 07:21 | disposition home or self-care (01) ==
LOC: JER 18:50
PROC: 3E033GC Introduction of Other Therapeutic Substance into Peripheral Vein, Percutaneous Approach (ICD-10-PCS; principal; 2017-07-30)
DX: F10.129 Alcohol abuse with intoxication, unspecified (principal); F14.10 Cocaine abuse, uncomplicated; Y90.8 Blood alcohol level of 240 mg/100 ml or more
CPT/HCPCS: 36415; 70450-TC; 80053; 80307; 85025; 93005; 93010; 96365; 96366; 99284-25

== ENCOUNTER 2017-07-31 08:42 | Inpatient (IN) | payer OTHER ==
[2017-07-31 11:11] VITALS: BMI 25.9
--- NOTE | 2017-07-31 12:53 | HP ---
CIWA Score - CIWA Score Nausea/Vomitin Muscle Tremors: 5 Anxiety: 4-Mod. Anxious/Guarded Agitation: 4-Moderately Restless Paroxysmal Sweats: 3 Orientation: 2-Disoriented Date<2 days Tacttile Disturbances: 0-None Auditory Disturbances: 0-None Visual Disturbances: 0-None Headache: 0-None Present CIWA-Ar Total Score: 21 Admission ROS BHS - HPI Chief Complaint: Withdrawal sx. Allergies/Adverse Reactions: Allergies Allergy/AdvReac Type Severity Reaction Status Date / Time No Known Allergies Allergy Verified 07/31/17 10:56 History of Present Illness: 47 y/o man with a long hx. of alcoholism is admitted for detox. Pt. has been in previous detox, denies significant sobriety. Pt. was here last night but before he could be admitted, he was found on the floor. No one witnessed the fall, he was send to ED to be cleared. Head CT Scan is negative. Exam Limitations: No Limitations - Ebola screening Have you traveled outside of the country in the last 21 days: No Have you had contact with anyone from an Ebola affected area: No Have you been sick,other than usual withdrawal symptoms: No Do you have a fever: No - Review of Systems Constitutional: Diaphoresis EENT: reports: No Symptoms Reported Respiratory: reports: No Symptoms reported Cardiac: reports: No Symptoms Reported GI: reports: Nausea, Abdominal cramping : reports: No Symptoms Reported Musculoskeletal: reports: No Symptoms Reported Integumentary: reports: Sweating Neuro: reports: Headache, Tremors Endocrine: reports: No Symptoms Reported Hematology: reports: No Symptoms Reported Psychiatric: reports: No Sypmtoms Reported Other Systems: Reviewed and Negative Patient History - Patient Medical History Hx Anemia: No Hx Asthma: No Hx Chronic Obstructive Pulmonary Disease (COPD): No Hx Cancer: No Hx Cardiac Disorders: No Hx Congestive Heart Failure: No Hx Hypertension: No Hx Hypercholesterolemia: No Hx Pacemaker: No HX Cerebrovascular Accident: No Hx Seizures: No Hx Dementia: No Hx Diabetes: No Hx Gastrointestinal Disorders: No Hx Liver Disease: No Hx Genitourinary Disorders: No Hx Sexually Transmitted Disorders: No Hx Renal Disease (ESRD): No Hx Thyroid Disease: No Hx Human Immunodeficiency Virus (HIV): No Hx Hepatitis C: No Hx Depression: Yes Hx Suicide Attempt: No Hx Bipolar Disorder: Yes Hx Schizophrenia: No - Patient Surgical History Past Surgical History: Yes Hx Neurologic Surgery: No Hx Cataract Extraction: No Hx Cardiac Surgery: No Hx Lung Surgery: No Hx Breast Surgery: No Hx Breast Biopsy: No Hx Abdominal Surgery: No Hx Appendectomy: No Hx Cholecystectomy: No Hx Genitourinary Surgery: No Hx Section: No Hx Orthopedic Surgery: Yes (right foot surgery 1981) Anesthesia Reaction: No - PPD History Previous Implant?: Yes Documented Results: Positive w/o proof Implanted On Prior [facility] Admission?: Yes PPD to be Administered?: No - Smoking Cessation Smoking history: Current every day smoker Have you smoked in the past 12 months: Yes Aproximately how many cigarettes per day: 4 Hx Chewing Tobacco Use: No Initiated information on smoking cessation: Yes 'Breaking Loose' booklet given: 07/31/17 - Substance & Tx. History Hx Alcohol Use: Yes Hx Substance Use: Yes Substance Use Type: Alcohol, Cocaine Hx Substance Use Treatment: Yes (detox 06/2017 at [facility]) - Substances Abused Alcohol Route: Oral Frequency: Daily Amount used: vodka(1 gallon) Age of first use: 29 Date of Last Use: 07/30/17 Crack Route: Smoking Frequency: Daily Amount used: $60 Age of first use: 41 Date of Last Use: 07/29/17 Family Disease History - Family Disease History Family Disease History: Diabetes: Mother (depression), CA: Father (throat cancer , alcohol), Other: Mother, Brother (mental illness) Admission Physical Exam S - Vital Signs Vital Signs: Vital Signs - 24 hr 07/31/17 11:09 Temperature 97.8 F Pulse Rate 97 H Respiratory 20 Rate Blood Pressure 146/86 - Physical General Appearance: Yes: Alcohol on Breath, Tremorous, Sweating, Anxious HEENTM: Yes: Within Normal Limits Respiratory: Yes: Chest Non-Tender, Lungs Clear, Normal Breath Sounds Neck: Yes: Supple Breast: Yes: Breast Exam Deferred Cardiology: Yes: Regular Rhythm, Regular Rate, S1, S2 Abdominal: Yes: Normal Bowel Sounds, Non Tender, Soft Genitourinary: Yes: Within Normal Limits Back: Yes: Within Normal Limits Musculoskeletal: Yes: Within Normal Limits Extremities: Yes: Tremors Neurological: Yes: Fully Oriented, Alert Integumentary: Yes: Diaphoresis Lymphatic: Yes: Within Normal Limits - Diagnostic (1) PPD positive Current Visit: No Status: Chronic (2) Alcohol dependence with uncomplicated withdrawal Current Visit: Yes Status: Acute Cleared for Admission [facility] - Detox or Rehab [facility] Level of Care: Medically Managed Detox Regimen/Protocol: Librium [facility] Breath Alcohol Content Breath Alcohol Content: 0.300 Urine Drug Screen - Results Drug Screen Negative: No Urine Drug Screen Results: KEILA-Cocaine, BZO-Benzodiazepines
[2017-07-31] MEDS ORDERED: chlordiazePOXIDE HCL 25 MG CAPSULE PO ONE (12:59)
[2017-07-31] MEDS ORDERED: MAG HYDROX/AL HYDROX/SIMETH 30 ML UNIT-DOSE CUP PO PRN (12:59)
[2017-07-31] MEDS ORDERED: MAGNESIUM HYDROX 2400MG/30ML ORAL SUSPENSION 30 ML CUP PO PRN (12:59)
[2017-07-31] MEDS ORDERED: MENTHOL/PHENOL 1 EACH UD MM PRN (12:59)
[2017-07-31] MEDS ORDERED: NICOTINE POLACRILEX 2 MG GUM BC PRN (12:59)
[2017-07-31] MEDS ORDERED: hydrOXYzine PAMOATE 50 MG CAPSULE (FP) PO PRN (12:59)
[2017-07-31] MEDS ORDERED: diphenhydrAMINE HCL 50 MG CAPSULE PO PRN (12:59)
[2017-07-31] MEDS ORDERED: MAGNESIUM CITRATE 300 ML BOTTLE PO PRN (12:59)
[2017-07-31] MEDS ORDERED: guaiFENesin/D-METHORPHAN HB 10 ML UNIT-DOSE CUPS PO PRN (12:59)
[2017-07-31] MEDS ORDERED: LOPERAMIDE HCL 2 MG CAPSULE PO PRN (12:59)
[2017-07-31] MEDS ORDERED: ACETAMINOPHEN 325 MG TABLET (FP) PO PRN (12:59)
[2017-07-31] MEDS ORDERED: P-EPHED 60MG/TRIPROLIDI 2.5MG TABLET PO PRN (12:59)
[2017-07-31] MEDS: NICOTINE 7 MG/24 HOURS TOPICAL PATCH TD SCH ×2 (14:09→14:15)
[2017-07-31] MEDS: chlordiazePOXIDE HCL 25 MG CAPSULE PO SCH ×2 (17:14→22:33)
[2017-07-31 19:18] LABS: URINE APPEARANCE CLEAR; URINE BILIRUBIN NEGATIVE (NEGATIVE); URINE BLOOD NEGATIVE (NEGATIVE); URINE COLOR YELLOW; URINE GLUCOSE (UA) NEGATIVE (NEGATIVE); URINE KETONE 1+ (NEGATIVE); URINE LEUK ESTERASE NEGATIVE (NEGATIVE); URINE NITRITE NEGATIVE (NEGATIVE); URINE UROBILINOGEN NEGATIVE mg/dL (0.2-1.0)
[2017-07-31 19:22] LABS: URINE PROTEIN 1+ (NEGATIVE)
[2017-07-31 19:25] LABS: URINE MUCUS RARE; URINE RBC 1 /hpf (0-3); URINE WBC 1 /hpf (3-5)
[2017-07-31] MEDS: THIAMINE HCL 100 MG TABLET (FP) PO SCH (22:31)
[2017-08-01] MEDS: chlordiazePOXIDE HCL 25 MG CAPSULE PO SCH ×4 (05:17→22:33)
[2017-08-01] MEDS: chlordiazePOXIDE HCL 25 MG CAPSULE PO PRN ×2 (08:41→12:34)
[2017-08-01] MEDS ORDERED: chlordiazePOXIDE HCL 25 MG CAPSULE PO ONE (09:22)
[2017-08-01 09:46] LABS: MCH 32.6 pg (25.7-33.7); MCHC 33.3 g/dl (32.0-35.9); MEAN CELL VOLUME 98.1 fl (80-96); MEAN PLT VOLUME 7.9 fl (7.5-11.1); PLATELET COUNT 216 K/MM3 (134-434); RDW 15.6 % (11.9-15.9); WHITE BLOOD COUNT 4.9 K/mm3 (4.0-10.0)
[2017-08-01 09:57] LABS: ALBUMIN 3.6 g/dl (3.4-5.0); ANION GAP 7 (8-16); CALCIUM 9.3 mg/dL (8.5-10.1); CO2 31 mmol/L (21-32); CREATININE 0.9 mg/dL (0.7-1.3); GLUCOSE,RANDOM 84 mg/dL (74-106); SGOT/AST 84 U/L (15-37); SGPT/ALT 50 U/L (12-78)
[2017-08-01 09:58] LABS: ALK PHOS 105 U/L (45-117); BILIRUBIN,TOTAL 0.8 mg/dL (0.2-1.0); TOT PROT 6.8 g/dl (6.4-8.2)
[2017-08-01] MEDS: NICOTINE 7 MG/24 HOURS TOPICAL PATCH TD SCH (10:38)
[2017-08-01] MEDS: PRENATAL VITAMINS W/ FOLIC ACID TABLET (FP) PO SCH (10:38)
--- NOTE | 2017-08-01 10:55 | PN ---
S CIWA - CIWA Score Nausea/Vomitin Muscle Tremors: 3 Anxiety: 2 Agitation: 2 Paroxysmal Sweats: 1-Minimal Palms Moist Orientation: 0-Oriented Tacttile Disturbances: 1-Very Mild Itch/Numbness Auditory Disturbances: 1-Very Mild Visual Disturbances: 1-Very Mild Sensitivity Headache: 2-Mild CIWA-Ar Total Score: 16 S Progress Note (SOAP) Subjective: alert,irritable,anxious,interrupted sleep,tremor Objective: 08/01/17 10:55 Vital Signs Temperature 98.2 F 08/01/17 10:16 Pulse Rate 90 08/01/17 10:16 Respiratory Rate 18 08/01/17 10:16 Blood Pressure 144/98 08/01/17 10:16 O2 Sat by Pulse Oximetry (%) 08/01/17 10:55 08/01/17 10:56 ekg nsr,low voltage of qrs Laboratory Last Values WBC 4.9 K/mm3 (4.0-10.0) 08/01/17 07:00 RBC 4.38 M/mm3 (4.00-5.60) 08/01/17 07:00 Hgb 14.3 GM/dL (11.7-16.9) 08/01/17 07:00 Hct 43.0 % (35.4-49) 08/01/17 07:00 MCV 98.1 fl (80-96) H 08/01/17 07:00 MCH 32.6 pg (25.7-33.7) 08/01/17 07:00 MCHC 33.3 g/dl (32.0-35.9) 08/01/17 07:00 RDW 15.6 % (11.9-15.9) 08/01/17 07:00 Plt Count 216 K/MM3 (134-434) 08/01/17 07:00 MPV 7.9 fl (7.5-11.1) 08/01/17 07:00 Sodium 137 mmol/L (136-145) 08/01/17 07:00 Potassium 3.7 mmol/L (3.5-5.1) 08/01/17 07:00 Chloride 99 mmol/L (98-107) 08/01/17 07:00 Carbon Dioxide 31 mmol/L (21-32) 08/01/17 07:00 Anion Gap 7 (8-16) L 08/01/17 07:00 BUN 12 mg/dL (7-18) 08/01/17 07:00 Creatinine 0.9 mg/dL (0.7-1.3) 08/01/17 07:00 Creat Clearance w eGFR > 60 (>60) 08/01/17 07:00 Random Glucose 84 mg/dL (74-106) D 08/01/17 07:00 Calcium 9.3 mg/dL (8.5-10.1) 08/01/17 07:00 Total Bilirubin 0.8 mg/dL (0.2-1.0) D 08/01/17 07:00 AST 84 U/L (15-37) H 08/01/17 07:00 ALT 50 U/L (12-78) 08/01/17 07:00 Alkaline Phosphatase 105 U/L (45-117) 08/01/17 07:00 Total Protein 6.8 g/dl (6.4-8.2) 08/01/17 07:00 Albumin 3.6 g/dl (3.4-5.0) 08/01/17 07:00 Urine Color Yellow 07/31/17 18:00 Urine Appearance Clear 07/31/17 18:00 Urine pH 5.0 (5.0-8.0) 07/31/17 18:00 Ur Specific [place] 1.025 (1.005-1.025) 07/31/17 18:00 Urine Protein 1+ (NEGATIVE) H 07/31/17 18:00 Urine Glucose (UA) Negative (NEGATIVE) 07/31/17 18:00 Urine Ketones 1+ (NEGATIVE) H 07/31/17 18:00 Urine Blood Negative (NEGATIVE) 07/31/17 18:00 Urine Nitrite Negative (NEGATIVE) 07/31/17 18:00 Urine Bilirubin Negative (NEGATIVE) 07/31/17 18:00 Urine Urobilinogen Negative mg/dL (0.2-1.0) 07/31/17 18:00 Urine RBC 1 /hpf (0-3) 07/31/17 18:00 Urine WBC 1 /hpf (3-5) 07/31/17 18:00 Urine Mucus Rare 07/31/17 18:00 Assessment: 08/01/17 10:57 withdrawal symptom Plan: continue detox
--- NOTE | 2017-08-01 11:21 | CONSULT ---
[facility] Psychiatric Consult - Data Date of interview: 08/01/17 Admission source: [facility] Identifying data: This is 47 years old man with a long history of alcoholism, is admitted for detoxification with Alcohol, Cocaine, Opioids and Nicotine. 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 Efren sandoval8es history of psychiatric hospital;izations. - Ebola screening Substance Abuse History: - Smoking Cessation. Smoking history: Current every day smoker. Have you smoked in the past 12 months: Yes. Aproximately how many cigarettes per day: 4. Hx Chewing Tobacco Use: No. Initiated information on smoking cessation: Yes. 'Breaking Loose' booklet given: 07/31/17. - Substance & Tx. History. Hx Alcohol Use: Yes. Hx Substance Use: Yes. Substance Use Type : Alcohol, Cocaine. Hx Substance Use Treatment: Yes (detox 06/2017 at [facility]). - Substances Abused. Alcohol. Route: Oral. Frequency: Daily. Amount used: vodka(1 gallon). Age of first use: 29. Date of Last Use: 07/30/17. Crack. Route: Smoking. Frequency: Daily. Amount used: $60. Age of first use: 41. Date of Last Use: 07/29/17 Medical History: Weight loss history Psychiatric History: Patoient reprots no pqast psychiatric hospityalization history, reports insom,chaz, reports taking prior to admission: Vistaril 50mg po qhs with good rsponse Physical/Sexual Abuse/Trauma History: Denies Additional Comment: Vistaril 50mg po qhs Mental Status Exam - Mental Status Exam Alert and Oriented to: Person Cognitive Function: Fair Patient Appearance: Unkempt Mood: Anxious Affect: Mood Congruent Patient Behavior: Talkative Speech Pattern: Appropriate Voice Loudness: Mildly Loud Thought Process: Goal Oriented Thought Disorder: Being Controlled Hallucinations: Denies Suicidal Ideation: Denies Homicidal Ideation: Denies Insight/Judgement: Fair Sleep: Difficulty falling asleep Appetite: Weight loss Muscle strength/Tone: Normal Gait/Station: Normal Additional Comments: Vistaril 50mg po qhs Psychiatric Findings - Problem List ([place] 1, 2,3) (1) Alcohol dependence with uncomplicated withdrawal Current Visit: Yes Status: Acute (2) Alcohol intoxication Current Visit: No Status: Acute Qualifiers: Complication of substance-induced condition: uncomplicated Qualified Code(s): F10.920 - Alcohol use, unspecified with intoxication, uncomplicated (3) MDD (major depressive disorder), recurrent episode, moderate Current Visit: No Status: Acute (4) Alcohol dependence Current Visit: No Status: Chronic (5) PTSD (post-traumatic stress disorder) Current Visit: No Status: Chronic (6) Opioid dependence Current Visit: Yes Status: Acute (7) Cocaine dependence Current Visit: Yes Status: Acute (8) Nicotine dependence Current Visit: Yes Status: Acute (9) Drug-induced mood disorder Current Visit: Yes Status: Acute - Initial Treatment Plan Initial Treatment Plan: Vistaril 50mg po qhs
[2017-08-01] MEDS: IBUPROFEN 400 MG TABLET (FP) PO PRN (12:23)
--- NOTE | 2017-08-01 17:01 | EKG ---
Test Reason : Blood Pressure : / mmHG Vent. Rate : 095 BPM Atrial Rate : 095 BPM P-R Int : 174 ms QRS Dur : 112 ms QT Int : 352 ms P-R-T Axes : 072 -20 020 degrees QTc Int : 442 ms NORMAL SINUS RHYTHM LOW VOLTAGE QRS BORDERLINE ECG WHEN COMPARED WITH ECG OF 30-JUL-2017 19:48, NO SIGNIFICANT CHANGE WAS FOUND Confirmed by JUDY RAPHAEL MD ([id number]) on 08/01/2017 5:00:53 PM Referred By: Confirmed By:JUDY RAPHAEL MD
[2017-08-01] MEDS: THIAMINE HCL 100 MG TABLET (FP) PO SCH (22:32)
[2017-08-02] MEDS: chlordiazePOXIDE HCL 25 MG CAPSULE PO SCH ×2 (05:24→10:33)
[2017-08-02] MEDS: PRENATAL VITAMINS W/ FOLIC ACID TABLET (FP) PO SCH (10:33)
[2017-08-02] MEDS: NICOTINE 7 MG/24 HOURS TOPICAL PATCH TD SCH (10:33)
--- NOTE | 2017-08-02 10:45 | PN ---
S CIWA - CIWA Score Nausea/Vomitin Muscle Tremors: 3 Anxiety: 3 Agitation: 2 Paroxysmal Sweats: 1-Minimal Palms Moist Orientation: 0-Oriented Tacttile Disturbances: 1-Very Mild Itch/Numbness Auditory Disturbances: 1-Very Mild Visual Disturbances: 1-Very Mild Sensitivity Headache: 2-Mild CIWA-Ar Total Score: 17 BHS Progress Note (SOAP) Subjective: alert,irritable,anxious,interrupted sleep,tremor Objective: 08/02/17 10:45 Vital Signs Temperature 98.1 F 08/02/17 09:55 Pulse Rate 110 H 08/02/17 09:55 Respiratory Rate 16 08/02/17 09:55 Blood Pressure 130/85 08/02/17 09:55 O2 Sat by Pulse Oximetry (%) Laboratory Last Values WBC 4.9 K/mm3 (4.0-10.0) 08/01/17 07:00 RBC 4.38 M/mm3 (4.00-5.60) 08/01/17 07:00 Hgb 14.3 GM/dL (11.7-16.9) 08/01/17 07:00 Hct 43.0 % (35.4-49) 08/01/17 07:00 MCV 98.1 fl (80-96) H 08/01/17 07:00 MCH 32.6 pg (25.7-33.7) 08/01/17 07:00 MCHC 33.3 g/dl (32.0-35.9) 08/01/17 07:00 RDW 15.6 % (11.9-15.9) 08/01/17 07:00 Plt Count 216 K/MM3 (134-434) 08/01/17 07:00 MPV 7.9 fl (7.5-11.1) 08/01/17 07:00 Sodium 137 mmol/L (136-145) 08/01/17 07:00 Potassium 3.7 mmol/L (3.5-5.1) 08/01/17 07:00 Chloride 99 mmol/L (98-107) 08/01/17 07:00 Carbon Dioxide 31 mmol/L (21-32) 08/01/17 07:00 Anion Gap 7 (8-16) L 08/01/17 07:00 BUN 12 mg/dL (7-18) 08/01/17 07:00 Creatinine 0.9 mg/dL (0.7-1.3) 08/01/17 07:00 Creat Clearance w eGFR > 60 (>60) 08/01/17 07:00 Random Glucose 84 mg/dL (74-106) D 08/01/17 07:00 Calcium 9.3 mg/dL (8.5-10.1) 08/01/17 07:00 Total Bilirubin 0.8 mg/dL (0.2-1.0) D 08/01/17 07:00 AST 84 U/L (15-37) H 08/01/17 07:00 ALT 50 U/L (12-78) 08/01/17 07:00 Alkaline Phosphatase 105 U/L (45-117) 08/01/17 07:00 Total Protein 6.8 g/dl (6.4-8.2) 08/01/17 07:00 Albumin 3.6 g/dl (3.4-5.0) 08/01/17 07:00 Urine Color Yellow 07/31/17 18:00 Urine Appearance Clear 07/31/17 18:00 Urine pH 5.0 (5.0-8.0) 07/31/17 18:00 Ur Specific [place] 1.025 (1.005-1.025) 07/31/17 18:00 Urine Protein 1+ (NEGATIVE) H 07/31/17 18:00 Urine Glucose (UA) Negative (NEGATIVE) 07/31/17 18:00 Urine Ketones 1+ (NEGATIVE) H 07/31/17 18:00 Urine Blood Negative (NEGATIVE) 07/31/17 18:00 Urine Nitrite Negative (NEGATIVE) 07/31/17 18:00 Urine Bilirubin Negative (NEGATIVE) 07/31/17 18:00 Urine Urobilinogen Negative mg/dL (0.2-1.0) 07/31/17 18:00 Urine RBC 1 /hpf (0-3) 07/31/17 18:00 Urine WBC 1 /hpf (3-5) 07/31/17 18:00 Urine Mucus Rare 07/31/17 18:00 RPR Titer Nonreactive (NONREACTIVE) 08/01/17 07:00 Assessment: 08/02/17 10:45 withdrawal symptom Plan: continue detox
[2017-08-02] MEDS: chlordiazePOXIDE 5 MG CAPSULE PO SCH ×2 (17:52→22:28)
[2017-08-02] MEDS: THIAMINE HCL 100 MG TABLET (FP) PO SCH (22:28)
[2017-08-02] MEDS: IBUPROFEN 400 MG TABLET (FP) PO PRN (22:32)
[2017-08-02] MEDS: hydrOXYzine PAMOATE 50 MG CAPSULE (FP) PO PRN (22:34)
[2017-08-03] MEDS: chlordiazePOXIDE 5 MG CAPSULE PO SCH ×2 (05:43→10:39)
[2017-08-03] MEDS: NICOTINE 7 MG/24 HOURS TOPICAL PATCH TD SCH (10:39)
[2017-08-03] MEDS: PRENATAL VITAMINS W/ FOLIC ACID TABLET (FP) PO SCH (10:39)
--- NOTE | 2017-08-03 11:44 | PN ---
S Progress Note (SOAP) Subjective: alert,irritable,anxious,interrupted sleep Objective: 08/03/17 11:43 Vital Signs Temperature 97.9 F 08/03/17 09:58 Pulse Rate 108 H 08/03/17 09:58 Respiratory Rate 18 08/03/17 09:58 Blood Pressure 123/68 08/03/17 09:58 O2 Sat by Pulse Oximetry (%) Assessment: 08/03/17 11:43 withdrawal symptom Plan: continue detox,discharge in am
[2017-08-03] MEDS: chlordiazePOXIDE HCL 10 MG CAPSULE PO SCH ×2 (18:03→22:32)
[2017-08-03] MEDS: THIAMINE HCL 100 MG TABLET (FP) PO SCH (22:32)
[2017-08-03] MEDS: hydrOXYzine PAMOATE 50 MG CAPSULE (FP) PO PRN (22:34)
[2017-08-04] MEDS: chlordiazePOXIDE HCL 10 MG CAPSULE PO SCH ×2 (06:21→12:08)
--- NOTE | 2017-08-04 08:39 | DS ---
[facility] Detox Discharge Summary Admission Date: 07/31/17 Discharge Date: 08/04/17 - History Present History: Alcohol Dependence Additional Comments: follow up with after care program as arrangement - Physical Exam Results Vital Signs: Vital Signs Temperature 97.6 F 08/04/17 06:25 Pulse Rate 58 L 08/04/17 06:25 Respiratory Rate 16 08/04/17 06:25 Blood Pressure 100/50 08/04/17 06:25 O2 Sat by Pulse Oximetry (%) Pertinent Admission Physical Exam Findings: withdrawal symptom - Treatment Hospital Course: Detox Protocol Followed, Detoxed Safely, Responded well, Discharged Condition Good Patient has Accepted a Rehab Referral to: declined - Medication Discharge Medications: Ambulatory Orders Hydroxyzine Pamoate [Vistaril -] 50 mg PO DAILY 08/09/15 Diphenhydramine [Benadryl Capsule -] 50 mg PO HSMR1 PRN #30 cap 08/01/17 - Diagnosis (1) Alcohol dependence with uncomplicated withdrawal Current Visit: Yes Status: Acute (2) Nicotine dependence Current Visit: Yes Status: Acute - AMA Did Patient Leave Against Medical Advice: No
[2017-08-04 09:46] VITALS: BP 123/76; PULSE 100; TEMP 97
[2017-08-04] MEDS: PRENATAL VITAMINS W/ FOLIC ACID TABLET (FP) PO SCH (10:48)
[2017-08-04] MEDS: NICOTINE 7 MG/24 HOURS TOPICAL PATCH TD SCH (10:48)
== END 2017-08-04 12:55 | disposition home or self-care (01) | DRG 773 ==
LOC: YASAS 08:42 → Y6N 11:46
PROVIDERS: ADMIT Internal Medicine; ATTEND Internal Medicine
PROC: HZ2ZZZZ Detoxification Services for Substance Abuse Treatment (ICD-10-PCS; principal; 2017-07-31)
PROC: HZ2ZZZZ Detoxification Services for Substance Abuse Treatment (ICD-10-PCS; 2017-07-31)
DX: F11.20 Opioid dependence, uncomplicated (principal); F10.230 Alcohol dependence with withdrawal, uncomplicated; F14.20 Cocaine dependence, uncomplicated; F17.210 Nicotine dependence, cigarettes, uncomplicated; F33.1 Major depressive disorder, recurrent, moderate; F19.24 Other psychoactive substance dependence with psychoactive substance-induced mood disorder; F43.10 Post-traumatic stress disorder, unspecified; R76.11 Nonspecific reaction to tuberculin skin test without active tuberculosis
CPT/HCPCS: 36415; 80053; 81003; 81015; 85027; 86593; 93005; 93010

== ENCOUNTER 2021-01-15 15:14 | Emergency (ER) | payer OTHER ==
[2021-01-15 15:41] VITALS: TEMP 97.8; BMI 22.8
[2021-01-15 17:40] LABS: BASO % 0.4 % (0-2.0); HEMATOCRIT 39.9 % (35.4-49); HEMOGLOBIN 13.4 GM/dL (11.7-16.9); LYMPH % 38.7 % (8-40); MCH 31.2 pg (25.7-33.7); MCHC 33.6 g/dl (32.0-35.9); MEAN CELL VOLUME 92.9 fl (80-96); MEAN PLT VOLUME 8.1 fl (7.5-11.1); MONO % 4.9 % (3.8-10.2); PLATELET COUNT 384 K/MM3 (134-434); RDW 13.9 % (11.9-15.9)
[2021-01-15 18:07] LABS: POTASSIUM 4.2 mmol/L (3.5-5.1)
[2021-01-15 18:10] LABS: ALBUMIN 3.6 g/dl (3.4-5.0); BLOOD UREA NITROGEN 13.2 mg/dL (7-18); CALCIUM 9.1 mg/dL (8.5-10.1)
[2021-01-15 18:15] LABS: BILIRUBIN,TOTAL 0.2 mg/dL (0.2-1); TOT PROT 6.8 g/dl (6.4-8.2)
[2021-01-15 20:20] VITALS: BP 110/72; PULSE 80
== END 2021-01-15 20:18 | disposition home or self-care (01) ==
LOC: JER 15:14
DX: F10.920 Alcohol use, unspecified with intoxication, uncomplicated (principal)
CPT/HCPCS: 36415; 71045-TC-FY; 80053; 85025; 93005; 93010; 99285-25; C9803; U0003

== ENCOUNTER 2021-01-16 01:12 | Inpatient (IN) | payer OTHER ==
[2021-01-16] MEDS ORDERED: MAG HYDROX/AL HYDROX/SIMETH 30 ML UNIT-DOSE CUP PO PRN (03:09)
[2021-01-16] MEDS ORDERED: cloNIDine HCL 0.1 MG TABLET PO PRN (03:09)
[2021-01-16] MEDS ORDERED: METHADONE HCL 10 MG TABLET (FOR DETOX USE ONLY) PO ONE (03:09)
[2021-01-16] MEDS ORDERED: MAGNESIUM HYDROX 2400MG/30ML ORAL SUSPENSION 30 ML CUP PO PRN (03:09)
[2021-01-16] MEDS ORDERED: NICOTINE POLACRILEX 2 MG GUM BUC PRN (03:09)
[2021-01-16] MEDS ORDERED: MENTHOL/PHENOL 1 EACH UD MM PRN (03:09)
[2021-01-16] MEDS ORDERED: ONDANSETRON *ODT* 4 MG TABLET SL PRN (03:09)
[2021-01-16] MEDS ORDERED: IBUPROFEN 400 MG TABLET (FP) PO PRN (03:09)
[2021-01-16] MEDS ORDERED: ACETAMINOPHEN 325 MG TABLET (FP) PO PRN ×2 (03:09)
[2021-01-16] MEDS ORDERED: chlordiazePOXIDE HCL 25 MG CAPSULE PO PRN (03:09)
[2021-01-16] MEDS ORDERED: METHOCARBAMOL 500 MG TABLET PO PRN (03:09)
[2021-01-16] MEDS ORDERED: MAGNESIUM CITRATE 300 ML BOTTLE PO PRN (03:09)
[2021-01-16] MEDS ORDERED: BISMUTH SUBSALICYLATE 524 MG/30 ML UD PO PRN (03:09)
[2021-01-16] MEDS: chlordiazePOXIDE HCL 25 MG CAPSULE PO SCH ×4 (04:38→23:13)
[2021-01-16] MEDS: PRENATAL VITAMINS W/ FOLIC ACID TABLET (FP) PO SCH (11:16)
[2021-01-16] MEDS: NICOTINE 14 MG/24 HOURS TOPICAL PATCH TD SCH (11:17)
[2021-01-16] MEDS ORDERED: THIAMINE HCL 100 MG TABLET (FP) PO SCH (22:00)
[2021-01-16] MEDS ORDERED: MELATONIN 5 MG TABLETS PO SCH (22:00)
[2021-01-17] MEDS: chlordiazePOXIDE HCL 25 MG CAPSULE PO SCH ×2 (05:41→10:27)
[2021-01-17] MEDS ORDERED: METHADONE HCL 5 MG TABLET (FOR DETOX USE ONLY) ONE (09:03)
[2021-01-17] MEDS ORDERED: METHADONE HCL 10 MG TABLET (FOR DETOX USE ONLY) ONE (09:03)
[2021-01-17] MEDS ORDERED: METHADONE (DETOX) 20 MG, METHADONE (DETOX) 5 MG PO ONE (10:00)
[2021-01-17 10:15] VITALS: BP 114/83; PULSE 78; TEMP 96.9
[2021-01-17 10:27] LABS: POTASSIUM 3.9 mmol/L (3.5-5.1)
[2021-01-17] MEDS: PRENATAL VITAMINS W/ FOLIC ACID TABLET (FP) PO SCH (10:27)
[2021-01-17] MEDS: NICOTINE 14 MG/24 HOURS TOPICAL PATCH TD SCH (10:29)
[2021-01-17 10:30] LABS: CALCIUM 9.2 mg/dL (8.5-10.1)
[2021-01-17 10:31] LABS: ALBUMIN 3.2 g/dl (3.4-5.0)
[2021-01-17 10:33] LABS: HEMATOCRIT 38.4 % (35.4-49); HEMOGLOBIN 13.2 GM/dL (11.7-16.9); MCH 31.5 pg (25.7-33.7); MCHC 34.3 g/dl (32.0-35.9); MEAN PLT VOLUME 8.4 fl (7.5-11.1); PLATELET COUNT 342 K/MM3 (134-434); RBC 4.17 M/mm3 (4.00-5.60); RDW 13.7 % (11.9-15.9); WHITE BLOOD COUNT 4.9 K/mm3 (4.0-10.0)
[2021-01-17 10:36] LABS: BILIRUBIN,TOTAL 0.4 mg/dL (0.2-1); TOT PROT 6.3 g/dl (6.4-8.2)
[2021-01-18] MEDS ORDERED: chlordiazePOXIDE HCL 10 MG CAPSULE PO PRN
[2021-01-18] MEDS ORDERED: chlordiazePOXIDE HCL 10 MG CAPSULE PO SCH (05:00)
[2021-01-18] MEDS ORDERED: METHADONE HCL 10 MG TABLET (FOR DETOX USE ONLY) PO ONE (10:00)
[2021-01-19] MEDS ORDERED: chlordiazePOXIDE HCL 10 MG CAPSULE PO SCH (05:00)
[2021-01-19] MEDS ORDERED: METHADONE (DETOX) 10 MG, METHADONE (DETOX) 5 MG PO ONE (10:00)
[2021-01-20] MEDS ORDERED: chlordiazePOXIDE HCL 10 MG CAPSULE PO ONE (05:00)
[2021-01-20] MEDS ORDERED: METHADONE HCL 10 MG TABLET (FOR DETOX USE ONLY) PO ONE (10:00)
[2021-01-21] MEDS ORDERED: METHADONE HCL 5 MG TABLET (FOR DETOX USE ONLY) PO ONE (06:00)
== END 2021-01-17 14:25 | disposition left against medical advice (07) | DRG 770 ==
LOC: YASAS 01:12 → Y3N 03:46
PROVIDERS: ADMIT Allergy & Immunology; ATTEND Allergy & Immunology
PROC: HZ2ZZZZ Detoxification Services for Substance Abuse Treatment (ICD-10-PCS; principal; 2021-01-16)
DX: F11.23 Opioid dependence with withdrawal (principal); F10.230 Alcohol dependence with withdrawal, uncomplicated; F17.210 Nicotine dependence, cigarettes, uncomplicated; F33.1 Major depressive disorder, recurrent, moderate; F43.10 Post-traumatic stress disorder, unspecified; F19.24 Other psychoactive substance dependence with psychoactive substance-induced mood disorder; M10.9 Gout, unspecified; R76.11 Nonspecific reaction to tuberculin skin test without active tuberculosis; Z62.810 Personal history of physical and sexual abuse in childhood; Z56.0 Unemployment, unspecified
CPT/HCPCS: 36415; 80053; 85027; 86780; 93005; 93010

== ENCOUNTER 2021-06-13 14:07 | Inpatient (IN) | payer OTHER ==
[2021-06-13 16:55] VITALS: BMI 25.2
[2021-06-13] MEDS ORDERED: METHOCARBAMOL 500 MG TABLET PO PRN (17:25)
[2021-06-13] MEDS ORDERED: methaDONE HCL 10 MG TABLET (FOR DETOX USE ONLY) PO ONE (17:25)
[2021-06-13] MEDS ORDERED: MAGNESIUM CITRATE 300 ML BOTTLE PO PRN (17:25)
[2021-06-13] MEDS ORDERED: BISMUTH SUBSALICYLATE 524 MG/30 ML PO PRN (17:25)
[2021-06-13] MEDS ORDERED: ONDANSETRON *ODT* 4 MG TABLET SL PRN (17:25)
[2021-06-13] MEDS ORDERED: IBUPROFEN 400 MG TABLET (FP) PO PRN (17:25)
[2021-06-13] MEDS ORDERED: NICOTINE POLACRILEX 2 MG GUM BUC PRN (17:25)
[2021-06-13] MEDS ORDERED: hydrOXYzine PAMOATE 25 MG CAPSULE (FP) PO PRN (17:25)
[2021-06-13] MEDS ORDERED: NICOTINE 10 MG CARTRIDGE (INHALER) IH PRN (17:25)
[2021-06-13] MEDS ORDERED: MENTHOL/PHENOL 1 EACH UD MM PRN (17:25)
[2021-06-13] MEDS ORDERED: cloNIDine HCL 0.1 MG TABLET PO PRN (17:25)
[2021-06-13] MEDS ORDERED: ACETAMINOPHEN 325 MG TABLET (FP) PO PRN ×2 (17:25)
[2021-06-13] MEDS ORDERED: MAGNESIUM HYDROX 2400MG/30ML ORAL SUSPENSION 30 ML CUP PO PRN (17:25)
[2021-06-13] MEDS ORDERED: MAG HYDROX/AL HYDROX/SIMETH 30 ML UNIT-DOSE CUP PO PRN (17:25)
[2021-06-13] MEDS: diazePAM 5 MG TABLET PO SCH ×2 (18:52→23:12)
[2021-06-13] MEDS: diazePAM 5 MG TABLET PO PRN (18:54)
[2021-06-13] MEDS: BACITRACIN 0.9 GM PACKET TP SCH (23:12)
[2021-06-13] MEDS: THIAMINE HCL 100 MG TABLET (FP) PO SCH (23:12)
[2021-06-13] MEDS: MELATONIN 5 MG TABLETS PO SCH (23:12)
[2021-06-14] MEDS: diazePAM 5 MG TABLET PO SCH ×4 (06:21→22:17)
[2021-06-14] MEDS ORDERED: methaDONE HCL 10 MG TABLET (FOR DETOX USE ONLY) ONE (08:36)
[2021-06-14] MEDS: PRENATAL VITAMINS W/ FOLIC ACID TABLET (FP) PO SCH (10:25)
[2021-06-14 10:27] LABS: HEMATOCRIT 39.1 % (35.4-49); HEMOGLOBIN 13.4 GM/dL (11.7-16.9); MCH 31.5 pg (25.7-33.7); MCHC 34.4 g/dl (32.0-35.9); MEAN CELL VOLUME 91.7 fl (80-96); MEAN PLT VOLUME 8.3 fl (7.5-11.1); PLATELET COUNT 308 10^3/uL (134-434); RBC 4.26 M/mm3 (4.00-5.60); RDW 13.9 % (11.9-15.9); WHITE BLOOD COUNT 6.7 K/mm3 (4.0-10.0)
[2021-06-14] MEDS: NICOTINE 21 MG/24 HOURS TOPICAL PATCH TD SCH (10:28)
[2021-06-14] MEDS: BACITRACIN 0.9 GM PACKET TP SCH ×2 (10:28→22:19)
[2021-06-14 10:57] LABS: CALCIUM 8.9 mg/dL (8.5-10.1)
[2021-06-14 10:58] LABS: ALBUMIN 3.3 g/dl (3.4-5.0); BLOOD UREA NITROGEN 12.2 mg/dL (7-18)
[2021-06-14 11:03] LABS: BILIRUBIN,TOTAL 0.5 mg/dL (0.2-1); TOT PROT 6.2 g/dl (6.4-8.2)
[2021-06-14] MEDS: THIAMINE HCL 100 MG TABLET (FP) PO SCH (22:17)
[2021-06-14] MEDS: MELATONIN 5 MG TABLETS PO SCH (22:19)
[2021-06-15] MEDS: diazePAM 5 MG TABLET PO SCH ×3 (05:41→22:24)
[2021-06-15] MEDS ORDERED: methaDONE HCL 10 MG TABLET (FOR DETOX USE ONLY) PO ONE (10:00)
[2021-06-15] MEDS: PRENATAL VITAMINS W/ FOLIC ACID TABLET (FP) PO SCH (10:10)
[2021-06-15] MEDS: BACITRACIN 0.9 GM PACKET TP SCH ×2 (10:12→22:43)
[2021-06-15] MEDS: NICOTINE 21 MG/24 HOURS TOPICAL PATCH TD SCH (10:12)
[2021-06-15] MEDS: diazePAM 5 MG TABLET PO PRN (10:19)
[2021-06-15 16:18] LABS: PH,URINE 8.5 (5.0-8.0); URINE APPEARANCE CLEAR; URINE BILIRUBIN NEGATIVE (NEGATIVE); URINE COLOR YELLOW; URINE GLUCOSE (UA) NEGATIVE (NEGATIVE); URINE KETONE NEGATIVE (NEGATIVE); URINE LEUK ESTERASE NEGATIVE (NEGATIVE); URINE NITRITE NEGATIVE (NEGATIVE); URINE PROTEIN NEGATIVE (NEGATIVE)
[2021-06-15] MEDS: THIAMINE HCL 100 MG TABLET (FP) PO SCH (22:24)
[2021-06-15] MEDS: MELATONIN 5 MG TABLETS PO SCH (22:26)
[2021-06-16] MEDS ORDERED: diazePAM 5 MG TABLET PO SCH (06:00)
[2021-06-16 09:05] VITALS: BP 143/88; PULSE 107; TEMP 98
[2021-06-17] MEDS ORDERED: diazePAM 5 MG TABLET PO ONE (06:00)
[2021-06-17] MEDS ORDERED: methaDONE HCL 10 MG TABLET (FOR DETOX USE ONLY) PO ONE (10:00)
== END 2021-06-16 09:36 | disposition left against medical advice (07) | DRG 770 ==
LOC: YASAS 14:07 → Y6N 18:05
PROVIDERS: ADMIT Allergy & Immunology; ATTEND Allergy & Immunology
PROC: HZ2ZZZZ Detoxification Services for Substance Abuse Treatment (ICD-10-PCS; principal; 2021-06-13)
DX: F11.23 Opioid dependence with withdrawal (principal); F10.230 Alcohol dependence with withdrawal, uncomplicated; F14.20 Cocaine dependence, uncomplicated; F17.213 Nicotine dependence, cigarettes, with withdrawal; F19.24 Other psychoactive substance dependence with psychoactive substance-induced mood disorder; F33.1 Major depressive disorder, recurrent, moderate; F43.10 Post-traumatic stress disorder, unspecified; M10.9 Gout, unspecified; S61.412A Laceration without foreign body of left hand, initial encounter; X58.XXXA Exposure to other specified factors, initial encounter; Y93.9 Activity, unspecified; Y92.9 Unspecified place or not applicable; Z91.14 Patient's other noncompliance with medication regimen; Z86.11 Personal history of tuberculosis; Z56.0 Unemployment, unspecified; Z59.0 Homelessness
CPT/HCPCS: 36415; 80053; 81003; 85027; 86780; C9803; U0003; U0005

== ENCOUNTER 2021-09-07 14:52 | Inpatient (IN) | payer OTHER ==
[2021-09-07 17:06] VITALS: BMI 24.3
[2021-09-07] MEDS ORDERED: MAG HYDROX/AL HYDROX/SIMETH 30 ML UNIT-DOSE CUP PO PRN (17:43)
[2021-09-07] MEDS ORDERED: BISMUTH SUBSALICYLATE 524 MG/30 ML PO PRN (17:43)
[2021-09-07] MEDS ORDERED: ONDANSETRON *ODT* 4 MG TABLET SL PRN (17:43)
[2021-09-07] MEDS ORDERED: MAGNESIUM CITRATE 300 ML BOTTLE PO PRN (17:43)
[2021-09-07] MEDS ORDERED: ACETAMINOPHEN 325 MG TABLET (FP) PO PRN (17:43)
[2021-09-07] MEDS ORDERED: MAGNESIUM HYDROX 2400MG/30ML ORAL SUSPENSION 30 ML CUP PO PRN (17:43)
[2021-09-07] MEDS ORDERED: IBUPROFEN 400 MG TABLET (FP) PO PRN (17:43)
[2021-09-07] MEDS ORDERED: MENTHOL/PHENOL 1 EACH UD MM PRN (17:43)
[2021-09-07] MEDS ORDERED: NICOTINE POLACRILEX 2 MG GUM BUC PRN (17:43)
[2021-09-07] MEDS ORDERED: diazePAM 5 MG TABLET PO PRN (17:45)
[2021-09-07] MEDS ORDERED: diazePAM 5 MG TABLET PO ONE (17:45)
[2021-09-07] MEDS ORDERED: cloNIDine HCL 0.1 MG TABLET PO PRN (17:46)
[2021-09-07] MEDS ORDERED: methaDONE HCL 10 MG TABLET (FOR DETOX USE ONLY) PO ONE (19:15)
[2021-09-07] MEDS ORDERED: diazePAM 5 MG TABLET ONE (19:37)
[2021-09-07] MEDS ORDERED: methaDONE HCL 10 MG TABLET (FOR DETOX USE ONLY) ONE (19:38)
[2021-09-07] MEDS: MELATONIN 5 MG TABLETS PO SCH (22:30)
[2021-09-07] MEDS: THIAMINE HCL 100 MG TABLET (FP) PO SCH (22:30)
[2021-09-07] MEDS: diazePAM 5 MG TABLET PO SCH (22:31)
[2021-09-07] MEDS: hydrOXYzine PAMOATE 25 MG CAPSULE (FP) PO PRN (22:32)
[2021-09-08] MEDS: diazePAM 5 MG TABLET PO SCH ×4 (05:34→22:11)
[2021-09-08] MEDS ORDERED: methaDONE HCL 10 MG TABLET (FOR DETOX USE ONLY) ONE (08:46)
[2021-09-08] MEDS: PRENATAL VITAMINS W/ FOLIC ACID TABLET (FP) PO SCH (10:22)
[2021-09-08 11:50] LABS: HEMATOCRIT 40.1 % (35.4-49); HEMOGLOBIN 13.5 GM/dL (11.7-16.9); MCHC 33.6 g/dl (32.0-35.9); MEAN CELL VOLUME 92.2 fl (80-96); MEAN PLT VOLUME 8.4 fl (7.5-11.1); PLATELET COUNT 300 10^3/uL (134-434); RBC 4.35 M/mm3 (4.00-5.60); WHITE BLOOD COUNT 5.8 K/mm3 (4.0-10.0)
[2021-09-08 12:08] LABS: ALBUMIN 2.8 g/dl (3.4-5.0); BLOOD UREA NITROGEN 14.4 mg/dL (7-18)
[2021-09-08 12:11] LABS: CREATININE 0.9 mg/dL (0.55-1.3)
[2021-09-08 12:12] LABS: BILIRUBIN,TOTAL 0.2 mg/dL (0.2-1); TOT PROT 5.9 g/dl (6.4-8.2)
[2021-09-08] MEDS: MELATONIN 5 MG TABLETS PO SCH (22:11)
[2021-09-08] MEDS: THIAMINE HCL 100 MG TABLET (FP) PO SCH (22:11)
[2021-09-09] MEDS: diazePAM 5 MG TABLET PO SCH ×3 (06:05→22:15)
[2021-09-09] MEDS: ACETAMINOPHEN 325 MG TABLET (FP) PO PRN (06:06)
[2021-09-09] MEDS ORDERED: methaDONE HCL 10 MG TABLET (FOR DETOX USE ONLY) PO ONE (10:00)
[2021-09-09] MEDS: PRENATAL VITAMINS W/ FOLIC ACID TABLET (FP) PO SCH (10:38)
[2021-09-09] MEDS: MELATONIN 5 MG TABLETS PO SCH (22:15)
[2021-09-09] MEDS: THIAMINE HCL 100 MG TABLET (FP) PO SCH (22:15)
[2021-09-10] MEDS: diazePAM 5 MG TABLET PO SCH ×2 (05:33→18:16)
[2021-09-10] MEDS ORDERED: methaDONE HCL 10 MG TABLET (FOR DETOX USE ONLY) ONE (09:39)
[2021-09-10] MEDS: PRENATAL VITAMINS W/ FOLIC ACID TABLET (FP) PO SCH (10:40)
[2021-09-10] MEDS: ACETAMINOPHEN 325 MG TABLET (FP) PO PRN (18:17)
[2021-09-10] MEDS: MELATONIN 5 MG TABLETS PO SCH (22:18)
[2021-09-10] MEDS: THIAMINE HCL 100 MG TABLET (FP) PO SCH (22:18)
[2021-09-10] MEDS: METHOCARBAMOL 500 MG TABLET PO PRN (22:19)
[2021-09-10] MEDS: hydrOXYzine PAMOATE 25 MG CAPSULE (FP) PO PRN (22:20)
[2021-09-11] MEDS ORDERED: diazePAM 5 MG TABLET PO ONE (06:00)
[2021-09-11] MEDS ORDERED: methaDONE HCL 10 MG TABLET (FOR DETOX USE ONLY) PO ONE (10:00)
[2021-09-11] MEDS: PRENATAL VITAMINS W/ FOLIC ACID TABLET (FP) PO SCH (10:15)
[2021-09-11] MEDS: hydrOXYzine PAMOATE 25 MG CAPSULE (FP) PO PRN ×3 (10:18→22:00)
[2021-09-11] MEDS: METHOCARBAMOL 500 MG TABLET PO PRN (17:48)
[2021-09-11] MEDS: THIAMINE HCL 100 MG TABLET (FP) PO SCH (21:59)
[2021-09-11] MEDS: MELATONIN 5 MG TABLETS PO SCH (21:59)
[2021-09-12] MEDS: PRENATAL VITAMINS W/ FOLIC ACID TABLET (FP) PO SCH (10:06)
[2021-09-12 10:18] VITALS: BP 107/68; PULSE 78; TEMP 97.7
== END 2021-09-12 12:09 | disposition home or self-care (01) | DRG 773 ==
LOC: YASAS 14:52 → Y3N 18:51
PROVIDERS: ADMIT Allergy & Immunology; ATTEND Allergy & Immunology
PROC: HZ2ZZZZ Detoxification Services for Substance Abuse Treatment (ICD-10-PCS; principal; 2021-09-07)
DX: F11.23 Opioid dependence with withdrawal (principal); F10.230 Alcohol dependence with withdrawal, uncomplicated; F14.20 Cocaine dependence, uncomplicated; F17.210 Nicotine dependence, cigarettes, uncomplicated; F19.24 Other psychoactive substance dependence with psychoactive substance-induced mood disorder; M10.9 Gout, unspecified; Z56.0 Unemployment, unspecified
CPT/HCPCS: 36415; 80053; 85027; 86780; C9803; Q0162; U0003; U0005

== ENCOUNTER 2023-04-03 09:00 | Inpatient (IN) | payer BC ==
[2023-04-03 10:10] VITALS: BMI 28.8
[2023-04-03] MEDS ORDERED: BENZONATATE 200 MG CAPSULE PO PRN (14:51)
[2023-04-03] MEDS ORDERED: MAGNESIUM HYDROX 2400MG/30ML ORAL SUSPENSION 30 ML CUP PO PRN (14:51)
[2023-04-03] MEDS ORDERED: NALOXONE HCL 0.4 MG/ML VIAL IM PRN (14:51)
[2023-04-03] MEDS ORDERED: ACETAMINOPHEN 325 MG TABLET (FP) PO PRN (14:51)
[2023-04-03] MEDS ORDERED: cloNIDine HCL 0.1 MG TABLET PO PRN (14:51)
[2023-04-03] MEDS ORDERED: LOPERAMIDE HCL 2 MG CAPSULE PO PRN (14:51)
[2023-04-03] MEDS ORDERED: IBUPROFEN 400 MG TABLET (FP) PO PRN (14:51)
[2023-04-03] MEDS ORDERED: NALOXONE HCL (KLOXXADO) 8 MG SPRAY NS PRN (14:51)
[2023-04-03] MEDS ORDERED: guaiFENesin 600 MG TABLET.ER (FP) PO PRN (14:51)
[2023-04-03] MEDS ORDERED: DICYCLOMINE HCL 10 MG CAPSULE PO PRN (14:51)
[2023-04-03] MEDS ORDERED: BISMUTH SUBSALICYLATE 524 MG/30 ML PO PRN (14:51)
[2023-04-03] MEDS ORDERED: BENZOCAINE/MENTHOL (CHLORASEPTIC ) LOZENGE MM PRN (14:51)
[2023-04-03] MEDS ORDERED: POLYETHYLENE GLYCOL (HEALTHYLAX) 3350 17 GM PACKET PO PRN (14:51)
[2023-04-03] MEDS ORDERED: IBUPROFEN 600 MG TABLET (FP) PO PRN (14:51)
[2023-04-03] MEDS ORDERED: ONDANSETRON *ODT* 4 MG TABLET SL PRN (14:51)
[2023-04-03] MEDS ORDERED: MAG HYDROX/AL HYDROX/SIMETH 30 ML UNIT-DOSE CUP PO PRN (14:51)
[2023-04-03] MEDS ORDERED: methaDONE HCL 10 MG TABLET (FOR DETOX USE ONLY) PO ONE (15:15)
[2023-04-03] MEDS ORDERED: methaDONE HCL 10 MG TABLET (FOR DETOX USE ONLY) ONE (15:30)
[2023-04-03] MEDS: BACITRACIN 0.9 GM PACKET TP SCH (22:14)
[2023-04-03] MEDS: THIAMINE HCL 100 MG TABLET (FP) PO SCH (22:15)
[2023-04-03] MEDS: SULFAMETHOXAZOLE/TRIMETHOPRIM 800MG/160MG D.S. TABLET PO SCH (22:15)
[2023-04-03] MEDS: MELATONIN 5 MG TABLETS PO SCH (22:15)
[2023-04-04 09:58] LABS: POTASSIUM 4.1 mmol/L (3.5-5.1)
[2023-04-04 10:01] LABS: HEMATOCRIT 36.8 % (35.4-49); HEMOGLOBIN 12.4 GM/dL (11.7-16.9); MCH 29.7 pg (25.7-33.7); MCHC 33.7 g/dl (32.0-35.9); MEAN CELL VOLUME 88.3 fl (80-96); MEAN PLT VOLUME 9.2 fl (7.5-11.1); PLATELET COUNT 382 10^3/uL (134-434); RBC 4.17 M/mm3 (4.00-5.60); RDW 15.1 % (11.9-15.9)
[2023-04-04 10:04] LABS: ALBUMIN 2.7 g/dl (3.4-5.0); BILIRUBIN,TOTAL 0.1 mg/dL (0.2-1); CALCIUM 8.7 mg/dL (8.5-10.1)
[2023-04-04 10:06] LABS: BLOOD UREA NITROGEN 17.4 mg/dL (7-18)
[2023-04-04 10:08] LABS: CREATININE 0.8 mg/dL (0.55-1.3)
[2023-04-04] MEDS: hydrOXYzine PAMOATE 25 MG CAPSULE (FP) PO PRN (10:13)
[2023-04-04] MEDS: BACITRACIN 0.9 GM PACKET TP SCH ×2 (10:13→21:55)
[2023-04-04] MEDS: SULFAMETHOXAZOLE/TRIMETHOPRIM 800MG/160MG D.S. TABLET PO SCH ×2 (10:13→21:55)
[2023-04-04] MEDS: PRENATAL VITAMINS W/ FOLIC ACID TABLET (FP) PO SCH (10:15)
[2023-04-04] MEDS: THIAMINE HCL 100 MG TABLET (FP) PO SCH (21:55)
[2023-04-04] MEDS: MELATONIN 5 MG TABLETS PO SCH (21:55)
[2023-04-05] MEDS ORDERED: methaDONE HCL 10 MG TABLET (FOR DETOX USE ONLY) PO ONE (10:00)
[2023-04-05] MEDS: BACITRACIN 0.9 GM PACKET TP SCH ×2 (10:05→22:12)
[2023-04-05] MEDS: SULFAMETHOXAZOLE/TRIMETHOPRIM 800MG/160MG D.S. TABLET PO SCH ×2 (10:05→22:12)
[2023-04-05] MEDS: PRENATAL VITAMINS W/ FOLIC ACID TABLET (FP) PO SCH (10:05)
[2023-04-05] MEDS: MELATONIN 5 MG TABLETS PO SCH (22:12)
[2023-04-05] MEDS: THIAMINE HCL 100 MG TABLET (FP) PO SCH (22:12)
[2023-04-05] MEDS: METHOCARBAMOL 500 MG TABLET PO PRN (22:13)
[2023-04-06] MEDS: hydrOXYzine PAMOATE 25 MG CAPSULE (FP) PO PRN (05:36)
[2023-04-06] MEDS: BACITRACIN 0.9 GM PACKET TP SCH ×2 (09:44→22:11)
[2023-04-06] MEDS: SULFAMETHOXAZOLE/TRIMETHOPRIM 800MG/160MG D.S. TABLET PO SCH ×2 (09:45→22:11)
[2023-04-06] MEDS: PRENATAL VITAMINS W/ FOLIC ACID TABLET (FP) PO SCH (09:46)
[2023-04-06] MEDS: METHOCARBAMOL 500 MG TABLET PO PRN (17:52)
[2023-04-06] MEDS: THIAMINE HCL 100 MG TABLET (FP) PO SCH (22:11)
[2023-04-06] MEDS: MELATONIN 5 MG TABLETS PO SCH (22:11)
[2023-04-07] MEDS ORDERED: methaDONE HCL 10 MG TABLET (FOR DETOX USE ONLY) PO ONE (10:00)
[2023-04-07] MEDS: BACITRACIN 0.9 GM PACKET TP SCH ×2 (10:21→22:14)
[2023-04-07] MEDS: SULFAMETHOXAZOLE/TRIMETHOPRIM 800MG/160MG D.S. TABLET PO SCH ×2 (10:21→22:14)
[2023-04-07] MEDS: hydrOXYzine PAMOATE 25 MG CAPSULE (FP) PO PRN (10:21)
[2023-04-07] MEDS: PRENATAL VITAMINS W/ FOLIC ACID TABLET (FP) PO SCH (10:21)
[2023-04-07] MEDS: THIAMINE HCL 100 MG TABLET (FP) PO SCH (22:14)
[2023-04-07] MEDS: MELATONIN 5 MG TABLETS PO SCH (22:14)
[2023-04-08] MEDS: hydrOXYzine PAMOATE 25 MG CAPSULE (FP) PO PRN (05:31)
[2023-04-08 09:11] VITALS: TEMP 97.8
[2023-04-08] MEDS: SULFAMETHOXAZOLE/TRIMETHOPRIM 800MG/160MG D.S. TABLET PO SCH (10:16)
[2023-04-08] MEDS: BACITRACIN 0.9 GM PACKET TP SCH (10:16)
[2023-04-08] MEDS: PRENATAL VITAMINS W/ FOLIC ACID TABLET (FP) PO SCH (10:16)
[2023-04-08 12:31] VITALS: BP 100/60; PULSE 57; RESP 16
== END 2023-04-08 14:01 | disposition other institution (70) | DRG 773 ==
LOC: YASAS 09:00 → Y3N 15:27
PROVIDERS: ADMIT Allergy & Immunology; ATTEND Surgery
PROC: HZ2ZZZZ Detoxification Services for Substance Abuse Treatment (ICD-10-PCS; principal; 2023-04-03)
DX: F11.23 Opioid dependence with withdrawal (principal); F14.20 Cocaine dependence, uncomplicated; F19.24 Other psychoactive substance dependence with psychoactive substance-induced mood disorder; F51.05 Insomnia due to other mental disorder; F41.9 Anxiety disorder, unspecified; F32.A Depression, unspecified; L97.329 Non-pressure chronic ulcer of left ankle with unspecified severity; G47.00 Insomnia, unspecified; L03.114 Cellulitis of left upper limb; Z28.311 Partially vaccinated for COVID-19; Z28.9 Immunization not carried out for unspecified reason
CPT/HCPCS: 36415; 80053; 85027; 86780; 87811; C9803-CS; U0003; U0005

== ENCOUNTER 2023-04-08 14:01 | Inpatient (IN) | payer BC ==
[2023-04-08] MEDS ORDERED: IBUPROFEN 600 MG TABLET (FP) PO PRN (15:01)
[2023-04-08] MEDS ORDERED: ACETAMINOPHEN 325 MG TABLET (FP) PO PRN (15:01)
[2023-04-08] MEDS ORDERED: NALOXONE HCL 0.4 MG/ML VIAL IVPUSH PRN (15:01)
[2023-04-08] MEDS ORDERED: NALOXONE HCL (KLOXXADO) 8 MG SPRAY NS PRN (15:01)
[2023-04-08] MEDS ORDERED: MAGNESIUM HYDROX 2400MG/30ML ORAL SUSPENSION 30 ML CUP PO PRN (15:01)
[2023-04-08] MEDS ORDERED: hydrOXYzine PAMOATE 25 MG CAPSULE (FP) PO PRN (15:01)
[2023-04-08] MEDS ORDERED: BENZOCAINE/MENTHOL (CHLORASEPTIC ) LOZENGE MM PRN (15:01)
[2023-04-08] MEDS ORDERED: METHOCARBAMOL 500 MG TABLET PO PRN (15:01)
[2023-04-08] MEDS ORDERED: AMMONIUM LACTATE 12% LOTION 225 GM BOTTLE TP PRN (15:01)
[2023-04-08] MEDS ORDERED: BENZONATATE 200 MG CAPSULE PO PRN (15:01)
[2023-04-08] MEDS ORDERED: LOPERAMIDE HCL 2 MG CAPSULE PO PRN (15:01)
[2023-04-08] MEDS ORDERED: COLLOIDAL OATMEAL 1 BAR EACH TP PRN (15:01)
[2023-04-08] MEDS ORDERED: POLYETHYLENE GLYCOL (HEALTHYLAX) 3350 17 GM PACKET PO PRN (15:01)
[2023-04-08] MEDS ORDERED: guaiFENesin 600 MG TABLET.ER (FP) PO PRN (15:01)
[2023-04-08] MEDS ORDERED: MAG HYDROX/AL HYDROX/SIMETH 30 ML UNIT-DOSE CUP PO PRN (15:01)
[2023-04-08] MEDS ORDERED: IBUPROFEN 400 MG TABLET (FP) PO PRN (15:01)
[2023-04-08] MEDS: MELATONIN 5 MG TABLETS PO SCH (21:26)
[2023-04-08] MEDS: THIAMINE HCL 100 MG TABLET (FP) PO SCH (21:26)
[2023-04-08] MEDS: SULFAMETHOXAZOLE/TRIMETHOPRIM 800MG/160MG D.S. TABLET PO SCH (21:26)
[2023-04-09] MEDS: PRENATAL VITAMINS W/ FOLIC ACID TABLET (FP) PO SCH (09:17)
[2023-04-09] MEDS: SULFAMETHOXAZOLE/TRIMETHOPRIM 800MG/160MG D.S. TABLET PO SCH ×2 (09:17→21:16)
[2023-04-09] MEDS: MELATONIN 5 MG TABLETS PO SCH (21:16)
[2023-04-09] MEDS: THIAMINE HCL 100 MG TABLET (FP) PO SCH (21:16)
[2023-04-10] MEDS: SULFAMETHOXAZOLE/TRIMETHOPRIM 800MG/160MG D.S. TABLET PO SCH (09:53)
[2023-04-10] MEDS: PRENATAL VITAMINS W/ FOLIC ACID TABLET (FP) PO SCH (09:53)
[2023-04-10] MEDS: THIAMINE HCL 100 MG TABLET (FP) PO SCH (21:22)
[2023-04-10] MEDS: MELATONIN 5 MG TABLETS PO SCH (21:22)
[2023-04-11] MEDS ORDERED: PRENATAL VITAMINS W/ FOLIC ACID TABLET (FP) PO PRN (08:21)
[2023-04-11] MEDS: THIAMINE HCL 100 MG TABLET (FP) PO SCH (21:14)
[2023-04-11] MEDS: MELATONIN 5 MG TABLETS PO SCH (21:14)
[2023-04-12] MEDS: THIAMINE HCL 100 MG TABLET (FP) PO SCH (23:12)
[2023-04-12] MEDS: MELATONIN 5 MG TABLETS PO SCH (23:12)
[2023-04-13] MEDS: MELATONIN 5 MG TABLETS PO SCH (21:14)
[2023-04-13] MEDS: THIAMINE HCL 100 MG TABLET (FP) PO SCH (21:14)
[2023-04-14] MEDS: THIAMINE HCL 100 MG TABLET (FP) PO SCH (21:16)
[2023-04-14] MEDS: MELATONIN 5 MG TABLETS PO SCH (21:16)
[2023-04-15] MEDS: MELATONIN 5 MG TABLETS PO SCH (21:21)
[2023-04-15] MEDS: THIAMINE HCL 100 MG TABLET (FP) PO SCH (21:21)
[2023-04-16] MEDS: THIAMINE HCL 100 MG TABLET (FP) PO SCH (21:34)
[2023-04-16] MEDS: MELATONIN 5 MG TABLETS PO SCH (21:35)
[2023-04-17] MEDS: THIAMINE HCL 100 MG TABLET (FP) PO SCH (21:32)
[2023-04-17] MEDS: MELATONIN 5 MG TABLETS PO SCH (21:32)
[2023-04-18] MEDS: THIAMINE HCL 100 MG TABLET (FP) PO SCH (21:14)
[2023-04-18] MEDS: MELATONIN 5 MG TABLETS PO SCH (21:14)
[2023-04-19 06:41] VITALS: BP 105/75; PULSE 74; RESP 16; TEMP 97.9
== END 2023-04-19 10:07 | disposition left against medical advice (07) | DRG 770 ==
LOC: YASAS 14:01 → Y3E 14:02 → UNDODISIN 04-18 18:30
PROVIDERS: ADMIT Allergy & Immunology; ATTEND Psychiatry & Neurology Pain Medicine
PROC: HZ42ZZZ Group Counseling for Substance Abuse Treatment, Cognitive-Behavioral (ICD-10-PCS; principal; 2023-04-08)
DX: F11.20 Opioid dependence, uncomplicated (principal); F14.20 Cocaine dependence, uncomplicated; F19.24 Other psychoactive substance dependence with psychoactive substance-induced mood disorder; F41.9 Anxiety disorder, unspecified; F32.A Depression, unspecified; G47.00 Insomnia, unspecified; S91.012D Laceration without foreign body, left ankle, subsequent encounter; S51.812D Laceration without foreign body of left forearm, subsequent encounter; Y08.89XD Assault by other specified means, subsequent encounter; F91.8 Other conduct disorders; Z91.199 Patient's noncompliance with other medical treatment and regimen due to unspecified reason

== ENCOUNTER 2023-04-29 14:45 | Inpatient (IN) | payer BC ==
[2023-04-29 15:39] VITALS: BMI 25.0
[2023-04-29] MEDS ORDERED: BENZOCAINE/MENTHOL (CHLORASEPTIC ) LOZENGE MM PRN (18:02)
[2023-04-29] MEDS ORDERED: NALOXONE HCL 0.4 MG/ML VIAL IM PRN (18:02)
[2023-04-29] MEDS ORDERED: NICOTINE 10 MG CARTRIDGE (INHALER) IH PRN (18:02)
[2023-04-29] MEDS ORDERED: MAG HYDROX/AL HYDROX/SIMETH 30 ML UNIT-DOSE CUP PO PRN (18:02)
[2023-04-29] MEDS ORDERED: MAGNESIUM HYDROX 2400MG/30ML ORAL SUSPENSION 30 ML CUP PO PRN (18:02)
[2023-04-29] MEDS ORDERED: DICYCLOMINE HCL 10 MG CAPSULE PO PRN (18:02)
[2023-04-29] MEDS ORDERED: BENZONATATE 200 MG CAPSULE PO PRN (18:02)
[2023-04-29] MEDS ORDERED: NICOTINE POLACRILEX 2 MG GUM BUC PRN (18:02)
[2023-04-29] MEDS ORDERED: IBUPROFEN 600 MG TABLET (FP) PO PRN (18:02)
[2023-04-29] MEDS ORDERED: BISMUTH SUBSALICYLATE 524 MG/30 ML PO PRN (18:02)
[2023-04-29] MEDS ORDERED: hydrOXYzine PAMOATE 25 MG CAPSULE (FP) PO PRN (18:02)
[2023-04-29] MEDS ORDERED: ACETAMINOPHEN 325 MG TABLET (FP) PO PRN (18:02)
[2023-04-29] MEDS ORDERED: ONDANSETRON *ODT* 4 MG TABLET SL PRN (18:02)
[2023-04-29] MEDS ORDERED: METHOCARBAMOL 500 MG TABLET PO PRN (18:02)
[2023-04-29] MEDS ORDERED: guaiFENesin 600 MG TABLET.ER (FP) PO PRN (18:02)
[2023-04-29] MEDS ORDERED: NALOXONE HCL (KLOXXADO) 8 MG SPRAY NS PRN (18:02)
[2023-04-29] MEDS ORDERED: P-EPHED 60MG/TRIPROLIDI 2.5MG TABLET PO PRN (18:02)
[2023-04-29] MEDS ORDERED: POLYETHYLENE GLYCOL (HEALTHYLAX) 3350 17 GM PACKET PO PRN (18:02)
[2023-04-29] MEDS ORDERED: IBUPROFEN 400 MG TABLET (FP) PO PRN (18:02)
[2023-04-29] MEDS ORDERED: LOPERAMIDE HCL 2 MG CAPSULE PO PRN (18:02)
[2023-04-29] MEDS: BACITRACIN 0.9 GM PACKET TP SCH (19:36)
[2023-04-29] MEDS ORDERED: MELATONIN 5 MG TABLETS PO SCH (22:00)
[2023-04-29] MEDS: THIAMINE HCL 100 MG TABLET (FP) PO SCH (22:55)
[2023-04-30] MEDS: BACITRACIN 0.9 GM PACKET TP SCH (10:52)
[2023-04-30] MEDS: PRENATAL VITAMINS W/ FOLIC ACID TABLET (FP) PO SCH (10:52)
[2023-04-30] MEDS ORDERED: QUEtiapine FUMARATE 50 MG TABLET PO SCH (22:00)
[2023-04-30] MEDS: THIAMINE HCL 100 MG TABLET (FP) PO SCH (22:31)
[2023-05-01 09:30] VITALS: BP 141/96; PULSE 73; RESP 16; TEMP 97.7
[2023-05-01] MEDS: BACITRACIN 0.9 GM PACKET TP SCH (11:12)
[2023-05-01] MEDS: PRENATAL VITAMINS W/ FOLIC ACID TABLET (FP) PO SCH (11:13)
== END 2023-05-01 10:46 | disposition home or self-care (01) | DRG 773 ==
LOC: YASAS 14:45 → Y3N 17:13
PROVIDERS: ADMIT Allergy & Immunology; ATTEND Surgery
PROC: HZ2ZZZZ Detoxification Services for Substance Abuse Treatment (ICD-10-PCS; principal; 2023-04-29)
DX: F11.23 Opioid dependence with withdrawal (principal); F10.230 Alcohol dependence with withdrawal, uncomplicated; F14.20 Cocaine dependence, uncomplicated; F17.210 Nicotine dependence, cigarettes, uncomplicated; F19.282 Other psychoactive substance dependence with psychoactive substance-induced sleep disorder
CPT/HCPCS: 87811

== ENCOUNTER 2024-01-06 09:14 | Inpatient (IN) | payer OTHER ==
[2024-01-06 09:32] VITALS: BMI 20.7
[2024-01-06] MEDS ORDERED: BENZONATATE 200 MG CAPSULE PO PRN (10:20)
[2024-01-06] MEDS ORDERED: MAG HYDROX/AL HYDROX/SIMETH 30 ML UNIT-DOSE CUP PO PRN (10:20)
[2024-01-06] MEDS ORDERED: ACETAMINOPHEN 325 MG TABLET (FP) PO PRN (10:20)
[2024-01-06] MEDS ORDERED: guaiFENesin 600 MG TABLET.ER (FP) PO PRN (10:20)
[2024-01-06] MEDS ORDERED: hydrOXYzine PAMOATE 25 MG CAPSULE (FP) PO PRN (10:20)
[2024-01-06] MEDS ORDERED: ONDANSETRON *ODT* 4 MG TABLET SL PRN (10:20)
[2024-01-06] MEDS ORDERED: LOPERAMIDE HCL 2 MG CAPSULE PO PRN (10:20)
[2024-01-06] MEDS ORDERED: NALOXONE HCL (KLOXXADO) 8 MG SPRAY NS PRN (10:20)
[2024-01-06] MEDS ORDERED: POLYETHYLENE GLYCOL (HEALTHYLAX) 3350 17 GM PACKET PO PRN (10:20)
[2024-01-06] MEDS ORDERED: BISMUTH SUBSALICYLATE 262 MG/15 ML BTL PO PRN (10:20)
[2024-01-06] MEDS ORDERED: NICOTINE POLACRILEX 2 MG GUM BUC PRN (10:20)
[2024-01-06] MEDS ORDERED: NALOXONE HCL 0.4 MG/ML VIAL IM PRN (10:20)
[2024-01-06] MEDS ORDERED: BENZOCAINE/MENTHOL (CHLORASEPTIC ) LOZENGE MM PRN (10:20)
[2024-01-06] MEDS ORDERED: DICYCLOMINE HCL 10 MG CAPSULE PO PRN (10:20)
[2024-01-06] MEDS ORDERED: MAGNESIUM HYDROX 2400MG/30ML ORAL SUSPENSION 30 ML CUP PO PRN (10:20)
[2024-01-06] MEDS ORDERED: IBUPROFEN 400 MG TABLET (FP) PO PRN (10:20)
[2024-01-06] MEDS: THIAMINE HCL 100 MG TABLET (FP) PO SCH (22:34)
[2024-01-06] MEDS: METHOCARBAMOL 500 MG TABLET PO PRN (22:34)
[2024-01-06] MEDS: MELATONIN 5 MG TABLETS PO SCH (22:34)
[2024-01-07 10:40] LABS: HEMATOCRIT 35.6 % (35.4-49); MCH 30.6 pg (25.7-33.7); MCHC 33.7 g/dl (32.0-35.9); MEAN CELL VOLUME 90.8 fl (80-96); MEAN PLT VOLUME 8.5 fl (7.5-11.1); PLATELET COUNT 310 10^3/uL (134-434); POTASSIUM 3.9 mmol/L (3.5-5.1); RBC 3.93 M/mm3 (4.00-5.60); RDW 13.8 % (11.9-15.9); WHITE BLOOD COUNT 6.4 K/mm3 (4.0-10.0)
[2024-01-07 10:41] LABS: CALCIUM 8.8 mg/dL (8.5-10.1)
[2024-01-07 10:43] LABS: ALBUMIN 3.1 g/dl (3.4-5.0); BLOOD UREA NITROGEN 24.1 mg/dL (7-18)
[2024-01-07 10:46] LABS: CREATININE 0.8 mg/dL (0.55-1.3)
[2024-01-07 10:47] LABS: BILIRUBIN,TOTAL 0.2 mg/dL (0.2-1); TOT PROT 6.5 g/dl (6.4-8.2)
[2024-01-07] MEDS: NICOTINE 14 MG/24 HOURS TOPICAL PATCH TD SCH (10:53)
[2024-01-07] MEDS: PRENATAL VITAMINS W/ FOLIC ACID TABLET (FP) PO SCH (10:54)
[2024-01-07] MEDS: OLANZapine 5 MG TABLET PO SCH ×2 (10:55→22:43)
[2024-01-07] MEDS: IBUPROFEN 600 MG TABLET (FP) PO PRN (22:41)
[2024-01-09 09:52] VITALS: BP 118/79; PULSE 74; RESP 16; TEMP 98
== END 2024-01-09 12:42 | disposition home or self-care (01) | DRG 773 ==
LOC: YASAS 09:14 → Y6N 10:40
PROVIDERS: ADMIT Allergy & Immunology; ATTEND Surgery
PROC: HZ2ZZZZ Detoxification Services for Substance Abuse Treatment (ICD-10-PCS; principal; 2024-01-06)
DX: F11.23 Opioid dependence with withdrawal (principal); F10.230 Alcohol dependence with withdrawal, uncomplicated; F14.10 Cocaine abuse, uncomplicated; F17.210 Nicotine dependence, cigarettes, uncomplicated; F19.24 Other psychoactive substance dependence with psychoactive substance-induced mood disorder; F20.9 Schizophrenia, unspecified; R79.89 Other specified abnormal findings of blood chemistry; Z86.11 Personal history of tuberculosis; Z59.00 Homelessness unspecified
CPT/HCPCS: 36415; 71046-TC-FY; 80053; 80307; 85027; 86780; 87635; 93005; 93010

== ENCOUNTER 2024-02-04 10:31 | Inpatient (IN) | payer OTHER ==
[2024-02-04 10:59] VITALS: BMI 23.1
[2024-02-04] MEDS ORDERED: NICOTINE POLACRILEX 4 MG GUM BUC PRN (14:24)
[2024-02-04] MEDS ORDERED: IBUPROFEN 600 MG TABLET (FP) PO PRN (14:24)
[2024-02-04] MEDS ORDERED: POLYETHYLENE GLYCOL (HEALTHYLAX) 3350 17 GM PACKET PO PRN (14:24)
[2024-02-04] MEDS ORDERED: NALOXONE HCL (KLOXXADO) 8 MG SPRAY NS PRN (14:24)
[2024-02-04] MEDS ORDERED: guaiFENesin 600 MG TABLET.ER (FP) PO PRN (14:24)
[2024-02-04] MEDS ORDERED: NALOXONE HCL 0.4 MG/ML VIAL IM PRN (14:24)
[2024-02-04] MEDS ORDERED: DICYCLOMINE HCL 10 MG CAPSULE PO PRN (14:24)
[2024-02-04] MEDS ORDERED: ACETAMINOPHEN 325 MG TABLET (FP) PO PRN (14:24)
[2024-02-04] MEDS ORDERED: MAG HYDROX/AL HYDROX/SIMETH 30 ML UNIT-DOSE CUP PO PRN (14:24)
[2024-02-04] MEDS ORDERED: BENZONATATE 200 MG CAPSULE PO PRN (14:24)
[2024-02-04] MEDS ORDERED: BISMUTH SUBSALICYLATE 524 MG/30 ML PO PRN (14:24)
[2024-02-04] MEDS ORDERED: MAGNESIUM HYDROX 2400MG/30ML ORAL SUSPENSION 30 ML CUP PO PRN (14:24)
[2024-02-04] MEDS ORDERED: IBUPROFEN 400 MG TABLET (FP) PO PRN (14:24)
[2024-02-04] MEDS ORDERED: ONDANSETRON *ODT* 4 MG TABLET SL PRN (14:24)
[2024-02-04] MEDS ORDERED: LORazepam 1 MG TABLET PO PRN (14:24)
[2024-02-04] MEDS ORDERED: NICOTINE POLACRILEX 4 MG LOZENGE BC PRN (14:24)
[2024-02-04] MEDS ORDERED: BENZOCAINE/MENTHOL (CHLORASEPTIC ) LOZENGE MM PRN (14:24)
[2024-02-04] MEDS ORDERED: LOPERAMIDE HCL 2 MG CAPSULE PO PRN (14:24)
[2024-02-04] MEDS: LORazepam 2 MG TABLET PO SCH (17:21)
[2024-02-04] MEDS: MELATONIN 5 MG TABLETS PO SCH (22:48)
[2024-02-04] MEDS: THIAMINE HCL 100 MG TABLET (FP) PO SCH (22:48)
[2024-02-05] MEDS: PRENATAL VITAMINS W/ FOLIC ACID TABLET (FP) PO SCH (10:09)
[2024-02-05 10:55] LABS: HEMATOCRIT 37.8 % (35.4-49); HEMOGLOBIN 12.6 GM/dL (11.7-16.9); MCH 30.4 pg (25.7-33.7); MCHC 33.4 g/dl (32.0-35.9); MEAN PLT VOLUME 8.2 fl (7.5-11.1); PLATELET COUNT 333 10^3/uL (134-434); RBC 4.16 M/mm3 (4.00-5.60); RDW 14.6 % (11.9-15.9); WHITE BLOOD COUNT 6.7 K/mm3 (4.0-10.0)
[2024-02-05 10:59] LABS: CHLORIDE 109 mmol/L (98-107); POTASSIUM 4.3 mmol/L (3.5-5.1); SODIUM 140 mmol/L (136-145)
[2024-02-05 11:02] LABS: CALCIUM 8.8 mg/dL (8.5-10.1); GLUCOSE,RANDOM 91 mg/dL (74-106)
[2024-02-05 11:03] LABS: ALBUMIN 2.9 g/dl (3.4-5.0); ANION GAP 4 mmol/L (4-13); BLOOD UREA NITROGEN 18.1 mg/dL (7-18); CO2 28 mmol/L (21-32)
[2024-02-05 11:05] LABS: SGOT/AST 18 U/L (15-37); SGPT/ALT 21 U/L (13-61)
[2024-02-05 11:06] LABS: CREATININE 0.8 mg/dL (0.55-1.3)
[2024-02-05 11:07] LABS: BILIRUBIN,TOTAL 0.3 mg/dL (0.2-1); TOT PROT 6.1 g/dl (6.4-8.2)
[2024-02-05 11:08] LABS: ALK PHOS 122 U/L (45-117)
[2024-02-05] MEDS: OLANZapine 2.5 MG TABLET PO SCH (13:38)
[2024-02-05] MEDS: LACTULOSE 20 GM/30 ML UDC (FOR ORAL USE ONLY) PO SCH (15:45)
[2024-02-05] MEDS: OLANZapine 5 MG TABLET PO SCH (22:09)
[2024-02-06] MEDS: LORazepam 1 MG TABLET PO SCH (05:04)
[2024-02-06] MEDS: METHOCARBAMOL 500 MG TABLET PO PRN (22:13)
[2024-02-07] MEDS ORDERED: LORazepam 0.5 MG TABLET PO PRN
[2024-02-07] MEDS: LORazepam 0.5 MG TABLET PO SCH (05:05)
[2024-02-08] MEDS: LORazepam 0.5 MG TABLET PO ONE (05:23)
[2024-02-08 13:23] VITALS: BP 100/64; PULSE 76; RESP 16; TEMP 97.7
== END 2024-02-08 14:12 | disposition other institution (70) | DRG 774 ==
LOC: YASAS 10:31 → Y6N 14:07 → Y3N 16:48
PROVIDERS: ADMIT Allergy & Immunology; ATTEND Surgery
PROC: HZ2ZZZZ Detoxification Services for Substance Abuse Treatment (ICD-10-PCS; principal; 2024-02-04)
DX: F10.230 Alcohol dependence with withdrawal, uncomplicated (principal); F14.20 Cocaine dependence, uncomplicated; F17.210 Nicotine dependence, cigarettes, uncomplicated; F20.9 Schizophrenia, unspecified; F19.24 Other psychoactive substance dependence with psychoactive substance-induced mood disorder; G47.00 Insomnia, unspecified; R79.89 Other specified abnormal findings of blood chemistry; R63.4 Abnormal weight loss; Z68.23 Body mass index [BMI] 23.0-23.9, adult; Z59.00 Homelessness unspecified
CPT/HCPCS: 36415; 80053; 80307; 82140; 85027; 86780; 87811; 93005; 93010

== ENCOUNTER 2024-02-08 14:20 | Inpatient (IN) | payer OTHER ==
[2024-02-08] MEDS ORDERED: IBUPROFEN 600 MG TABLET (FP) PO PRN (15:06)
[2024-02-08] MEDS ORDERED: POLYETHYLENE GLYCOL (HEALTHYLAX) 3350 17 GM PACKET PO PRN (15:06)
[2024-02-08] MEDS ORDERED: MAGNESIUM HYDROX 2400MG/30ML ORAL SUSPENSION 30 ML CUP PO PRN (15:06)
[2024-02-08] MEDS ORDERED: BENZOCAINE/MENTHOL (CHLORASEPTIC ) LOZENGE MM PRN (15:06)
[2024-02-08] MEDS ORDERED: NALOXONE (NYS OPIOID OVERDOSE PROGRAM) 4 MG/0.1 ML SPRAY NS PRN (15:06)
[2024-02-08] MEDS ORDERED: LOPERAMIDE HCL 2 MG CAPSULE PO PRN (15:06)
[2024-02-08] MEDS ORDERED: ACETAMINOPHEN 325 MG TABLET (FP) PO PRN (15:06)
[2024-02-08] MEDS ORDERED: METHOCARBAMOL 500 MG TABLET PO PRN (15:06)
[2024-02-08] MEDS ORDERED: MAG HYDROX/AL HYDROX/SIMETH 30 ML UNIT-DOSE CUP PO PRN (15:06)
[2024-02-08] MEDS ORDERED: AMMONIUM LACTATE 12% LOTION 225 GM BOTTLE TP PRN (15:06)
[2024-02-08] MEDS ORDERED: NALOXONE HCL 0.4 MG/ML VIAL IVPUSH PRN (15:06)
[2024-02-08] MEDS ORDERED: IBUPROFEN 400 MG TABLET (FP) PO PRN (15:06)
[2024-02-08] MEDS ORDERED: guaiFENesin 600 MG TABLET.ER (FP) PO PRN (15:06)
[2024-02-08] MEDS ORDERED: BENZONATATE 200 MG CAPSULE PO PRN (15:06)
[2024-02-08] MEDS: THIAMINE HCL 100 MG TABLET (FP) PO SCH (22:46)
[2024-02-08] MEDS: OLANZapine 5 MG TABLET PO SCH (22:46)
[2024-02-08] MEDS: MELATONIN 5 MG TABLETS PO SCH (22:47)
[2024-02-09] MEDS: OLANZapine 2.5 MG TABLET PO SCH (09:48)
[2024-02-09] MEDS: PRENATAL VITAMINS W/ FOLIC ACID TABLET (FP) PO SCH (09:48)
[2024-02-09] MEDS: PNEUMOC 20-VAL CONJ-DIP CRM/PF 0.5 ML SYRINGE IM ONE (12:53)
[2024-02-13] MEDS: hydrOXYzine PAMOATE 25 MG CAPSULE (FP) PO PRN (21:03)
[2024-02-20] MEDS: ACAMPROSATE CALCIUM 333 MG TABLET.DR PO SCH (21:22)
[2024-02-21 06:51] VITALS: BP 117/60; PULSE 75; RESP 16; TEMP 98.2
== END 2024-02-21 10:45 | disposition left against medical advice (07) | DRG 770 ==
LOC: YASAS 14:20 → Y5N 14:21 → Y3E 02-21 09:30 → Y5N 02-21 09:30
PROVIDERS: ADMIT Allergy & Immunology; ATTEND Psychiatry & Neurology Pain Medicine
PROC: HZ42ZZZ Group Counseling for Substance Abuse Treatment, Cognitive-Behavioral (ICD-10-PCS; principal; 2024-02-08)
DX: F11.20 Opioid dependence, uncomplicated (principal); F10.20 Alcohol dependence, uncomplicated; F17.210 Nicotine dependence, cigarettes, uncomplicated; F20.9 Schizophrenia, unspecified; F32.A Depression, unspecified; G47.00 Insomnia, unspecified; R79.89 Other specified abnormal findings of blood chemistry; F91.8 Other conduct disorders; Z91.199 Patient's noncompliance with other medical treatment and regimen due to unspecified reason
CPT/HCPCS: 36415; 82140; 86803; 90677